=== PATIENT | female | born 1975 | race Caucasian/White ===

== ENCOUNTER → 2018-01-02 10:58 | Outpatient (CLI) | payer OTHER, SELFPAY ==
--- NOTE | 2018-01-02 11:03 | RAD_ITS ---
STUDY: X-RAY - RIGHT KNEE REASON FOR EXAM: Female, 42 years old. Pain of the right knee. TECHNIQUE: 3 view(s) of the knee. COMPARISON: None. FINDINGS: Normal visualized distal femur. Normal visualized proximal tibia and fibula. Normal proximal tibiofibular articulation. There is no demonstrated fracture. There is mild degenerative arthrosis of the medial femorotibial compartment. There is mild degenerative arthrosis of the lateral femorotibial compartment. Normal patellofemoral articulation. There is no demonstrated joint effusion. The soft tissue structures are unremarkable. RAD/Knee 3 Views IMPRESSION: Mild degenerative changes of the medial and lateral compartment. Otherwise normal knee. Electronically Signed: Marti Villeda MD at 18:14 EST , Service support ,
== END ==
PROVIDERS: Family Provider Family Medicine; PCP Family Medicine; Visit Provider Family Medicine
DX: M17.11 Unilateral primary osteoarthritis, right knee (principal)
CPT/HCPCS: 73562

== ENCOUNTER → 2018-08-23 07:49 | Outpatient (CLI) | payer OTHER, SELFPAY ==
--- NOTE | 2018-08-23 07:51 | BI_ITS ---
MAMMOGRAPHY - BILATERAL SCREENING REASON FOR EXAM: Female, 42 years old. Routine annual screening examination. PERTINENT HISTORY: Non-contributory. History of prior left excisional breast biopsy. Prior bilateral breast reduction surgery. TECHNIQUE: Digital bilateral breast rocio (3D mammographic acquisition) in the CC and MLO projections. 2-D mediolateral oblique (MLO) and craniocaudad (CC) views of both breasts were obtained. CAD: Full Field Digital Mammography with Computer Added Detection was performed. COMPARISON: Comparison is made with prior mammogram dated March 03, 2010. FINDINGS: Breast Composition: The breasts are heterogeneously dense, which may obscure small masses. There are no dominant masses or suspicious calcifications. Stable bilateral axillary lymph nodes. No other significant abnormalities are identified. There has been no significant change since the prior study. BI/SCREENING MAMM (CAD), BILAT IMPRESSION: Stable bilateral screening mammogram. Yearly follow-up mammogram recommended. (A) ASSESSMENT CATEGORY: BIRADS Category 2: Benign. A letter regarding these results will be sent to the patient by the facility within 30 days. Approximately 10% of breast cancers are not detected by mammography. A normal mammogram should not delay biopsy of a clinically suspicious abnormality. [id number] Electronically Signed: Sukhwinder Corley MD at 8:55 EDT Tel [phone], Service support ,
== END ==
PROVIDERS: Family Provider Family Medicine; PCP Family Medicine; Referring Provider Nurse Practitioner Family; Visit Provider Nurse Practitioner Family
DX: Z12.31 Encounter for screening mammogram for malignant neoplasm of breast (principal)
CPT/HCPCS: 77063; 77067

== ENCOUNTER 2018-10-25 07:00 | Outpatient (RCR) | payer OTHER, SELFPAY ==
--- NOTE | 2018-05-23 14:21 | MASS.EVAL_ITS ---
Massage Therapy Evaluation: The patient is a 42 y.o. female who was referred to [facility] by Dr. Steiner with a Dx of cervicalgia. She presents today with symptoms of neck and shoulder tension with the left side being worse. The tension causes occasional numbness in the upper extremities, primarily left side. She reports a radiating pain from the upper thoracic spine across the to[ of the left shoulder blade. She reports having 5+ headaches per week. She attributes the headaches to muscle tension and stress. She has a secondary complaint of left hip pain. Medications: Multivitamin Wellbutrin Goals: Improved range of motion Decreased pain and stiffness Decreased numbness in upper extremities Her first treatment consisted of a one hour deep tissue massage to the upper body focusing on the neck and shoulders. She has high muscle tension through the cervical and thoracic are as well as the upper trapezius, levator and rhomboids. She had a large knot in the left rhomboid, along the medial border of the scapula. She responded well to treatment, there was a significant decrease in muscle tension. I feel that Marcia is a good candidate for massage. I plan on seeing her for a total of 10 one hour sessions of massage, focusing on her neck and shoulder areas. Stormy Davidson LMT
== END 2018-10-25 19:00 | disposition home or self-care (01) ==
LOC: MASS 07:00
PROVIDERS: Family Provider Family Medicine; PCP Family Medicine; Visit Provider Family Medicine
DX: M54.2 Cervicalgia (principal)
CPT/HCPCS: 97124

== ENCOUNTER → 2019-06-12 09:51 | Outpatient (CLI) | payer OTHER, SELFPAY ==
[2019-06-12 10:36] LABS: Thyroid Stim Hormone (TSH) 4.04 uIU/mL (0.358-3.74)
== END ==
PROVIDERS: Family Provider Family Medicine; PCP Family Medicine; Referring Provider Family Medicine; Visit Provider Family Medicine
DX: R61 Generalized hyperhidrosis (principal)
CPT/HCPCS: 84443

== ENCOUNTER → 2019-11-04 14:37 | Outpatient (CLI) | payer OTHER, SELFPAY ==
--- NOTE | 2019-11-04 14:40 | RAD_ITS ---
STUDY: X-RAY - CERVICAL SPINE REASON FOR EXAM: Female, 43 years old. NECK PAIN, KNOTS IN SHOULDER TECHNIQUE: 5 view(s) of the cervical spine were obtained. COMPARISON: None FINDINGS: Normal anterior atlantoaxial articulation. Normal odontoid process. There is straightening of the normal cervical lordosis. There is multi-level endplate spondylosis. There is multi-level degenerative disc disease with multilevel disc space narrowing. There is bony/uncovertebral foraminal encroachment involving the right more than left neural foramina, particularly at right C6-C7. The soft tissue structures are unremarkable. RAD/Cerv Spine 4 or 5 Views IMPRESSION: 1. Multilevel degenerative disc disease with right more than left foraminal stenosis, particularly at right C6-C7. Electronically Signed: Shahid Mccarthy MD ([place]) at 8:17 EST , Service support ,
== END ==
PROVIDERS: Family Provider Family Medicine; PCP Family Medicine; Referring Provider Family Medicine; Visit Provider Family Medicine
DX: M47.812 Spondylosis without myelopathy or radiculopathy, cervical region (principal); M50.323 Other cervical disc degeneration at C6-C7 level; M48.02 Spinal stenosis, cervical region
CPT/HCPCS: 72050

== ENCOUNTER → 2019-11-25 16:16 | Outpatient (CLI) | payer OTHER, SELFPAY ==
--- NOTE | 2019-11-25 16:45 | MRI_ITS ---
STUDY: MRI CERVICAL SPINE WITHOUT CONTRAST REASON FOR EXAM: Female, 43 years old. Degenerative disc disease, neck, left shoulder numbness and tingling. Pain in neck and left upper back TECHNIQUE: Standardized fat and water weighted pulse sequences were obtained in the sagittal and axial planes. COMPARISON: X-ray 11/04/2019. FINDINGS: Normal foramen magnum and brainstem-cervical cord junction. Normal craniovertebral junction. Normal anterior atlantoaxial articulation. Normal odontoid process. There is straightening of the normal cervical lordosis. Normal vertebral bodies and posterior osseous elements. C2-3: Normal endplates. Normal disc height, signal and morphology. Normal central canal and intervertebral neural foramina. C3-4: Normal endplates. Normal disc height, signal and morphology. Normal central canal. Moderate to severe left foraminal stenosis due to uncinate hypertrophy. C4-5: Normal endplates. Normal disc height, signal and morphology. Normal central canal and intervertebral neural foramina. C5-6: Disc space narrowing. Mild spondylotic bar with minimal cord flattening and borderline canal stenosis. Severe bilateral foraminal stenosis due to uncinate hypertrophy. C6-7: Disc space narrowing. Mild spondylotic bar with borderline canal stenosis. Severe bilateral foraminal stenosis due to uncinate hypertrophy. C7-T1: Normal endplates. Normal disc height, signal and morphology. Normal central canal and intervertebral neural foramina. Normal cervical cord. Normal visualized soft tissue structures. MRI/Spine Cervical (Routine) IMPRESSION: 1. Borderline canal stenosis at C5-6 and C6-7. 2. Moderate to severe foraminal stenosis at C3-4, C5-6, and C6-7. Electronically Signed: Charline Benavides MD at 17:52 EST Tel , Service support ,
== END ==
PROVIDERS: Family Provider Family Medicine; PCP Family Medicine; Referring Provider Family Medicine; Visit Provider Family Medicine
DX: M50.30 Other cervical disc degeneration, unspecified cervical region (principal)
CPT/HCPCS: 72141

== ENCOUNTER → 2020-07-29 11:07 | Outpatient (CLI) | payer OTHER, SELFPAY ==
[2020-07-29 10:30] VITALS: BMI 33.9
--- NOTE | 2020-07-29 11:08 | RAD_ITS ---
STUDY: X-RAY - LEFT KNEE REASON FOR EXAM: Female, 44 years old. left knee pain TECHNIQUE: 4 view(s) of the knee. COMPARISON: 01/02/2018 FINDINGS: Moderate tricompartmental osteoarthritis. Severe medial compartment joint space loss. No acute fracture or dislocation. No significant soft tissue swelling or joint effusion RAD/Knee 4 or More Views IMPRESSION: Significant degenerative changes Electronically Signed: Gary Fernandez DO at 1:14 EDT Tel , Service support ,
[2020-07-29 15:05] LABS: Pathologist Comment May follow
[2020-07-29 16:16] LABS: Synovial Fld Mononuclear WBC % 58.9 %; Synovial Fld Polynuclear WBC # 0.324 10^3/uL; Synovial Fld Polynuclear WBC % 41.1 %
[2020-07-29 17:57] LABS: RBC /Synovial Fluid 23 /mm3 (0)
[2020-07-29 18:59] LABS: AUTO B FLUID DILUENT BKGD CT WBC <0.1 RBC <0.01 (W<.1,R<.01); CRYSTALS, BODY FLUID See PATH REV; Source / Synovial Fluid NOT GIVEN; Source- Body Fluid SYNOVIAL
[2020-07-29 19:00] LABS: Appearance /Synovial Fluid Sl hazy (CLEAR); Body Fluid QC Type(s) BF1Q,BF2Q; Color / Synovial Fluid Yellow (Pale Yellow); Lymph 3 %; Monocyte /Synovial Fluid 49 %; Neutrophil 48 % (0-25)
[2020-07-30 12:24] LABS: Pathologist Review Reviewed
[2020-08-01 10:19] LABS: GLUCOSE, SYNOVIAL FLUID 102 mg/dL (.); PROTEIN, SYNOVIAL FLUID 7.7 g/dL (.)
== END ==
PROVIDERS: PCP Family Medicine; Referring Provider Orthopaedic Surgery; Visit Provider Orthopaedic Surgery
DX: S83.242A Other tear of medial meniscus, current injury, left knee, initial encounter (principal); M25.562 Pain in left knee; M71.22 Synovial cyst of popliteal space [Baker], left knee; M23.92 Unspecified internal derangement of left knee
CPT/HCPCS: 73564; 82945; 84157; 87070; 87075; 87205; 89050; 89051; 89060

== ENCOUNTER → 2020-07-30 13:29 | Outpatient (CLI) | payer OTHER, SELFPAY ==
[2020-07-29 10:30] VITALS: BMI 33.9
--- NOTE | 2020-07-30 13:30 | MRI_ITS ---
STUDY: MRI LEFT KNEE REASON FOR EXAM: Female, 44 years old. LEFT knee pain (yariel. lateral), swelling, h/o meniscal tear, 40cc fluid drained yesterday TECHNIQUE: Standardized fat and water weighted pulse sequences were obtained in all 3 orthogonal planes. COMPARISON: None. FINDINGS: A small vertical tear is present in the middle one third aspect of the posterior horn of the medial meniscus see image #18/36 series 8. Normal anterior horn and body. There is diffuse, greater than 50% thickness articular cartilage loss of the medial femorotibial compartment. There is mild to moderate osteoarthritic spur formation of the medial knee compartment. Normal medial collateral ligamentous complex (MCL). Normal distal semimembranosus, gracilis and semitendinosus tendons. Normal lateral meniscus. Normal hyaline cartilage of the lateral femorotibial compartment. There is moderate osteoarthritic spur formation of the lateral knee compartment. Normal proximal tibiofibular articulation. Normal lateral collateral (fibular) ligament. Normal popliteus tendon. Normal biceps femoris tendon. Normal anterior cruciate ligament (ACL). Normal posterior cruciate ligament (PCL). Normal congruent patellofemoral articulation. Normal hyaline cartilage of the patellofemoral compartment. Mild cortical osteophyte formation is present in the patellofemoral compartment. Normal medial and lateral patellar retinaculum. Normal quadriceps tendon. Normal patellar tendon. Normal Hoffa''s fat pad. A moderate size joint effusion is present. A 6.55 cm moderate size lobular Chopra''s cyst is also present. Mild edema is present anterior aspect of the knee joint. The otherwise visualized osseous structures are unremarkable. MRI/Lower Ext Joint Only (Routine) IMPRESSION: 1. Small vertical tear in the posterior horn of medial meniscus 2. Moderate size joint effusion and moderate-sized Chopra''s cyst Electronically Signed: Minh Crystal MD at 17:51 EDT , Service support ,
== END ==
PROVIDERS: PCP Family Medicine; Visit Provider Orthopaedic Surgery
DX: M23.92 Unspecified internal derangement of left knee (principal)
CPT/HCPCS: 73721

== ENCOUNTER 2020-08-27 06:02 | Day surgery (SDC) | payer OTHER, SELFPAY ==
[2020-08-03 13:14] VITALS: BMI 33.9
[2020-08-27 06:34] LABS: Internal QC Validated? YES +Cl - CLEAR BKGD; Pregnancy, Urine Negative Negative
[2020-08-27 06:46] VITALS: BP 148/99; PULSE 98; RESP 16; TEMP 36.8; O2SAT 98; BMI 36.8
[2020-08-27] MEDS: Lactated Ringers 1,000 ML 100 ML IV ×2 (06:55→08:58)
[2020-08-27] MEDS: Cefazolin 2 GM in 0.9% Normal Saline 100 ML IV (07:21)
--- NOTE | 2020-08-27 07:25 | DCINST_ITS ---
Discharge Diet: No Restrictions - Remove dressings postop day 4 and apply Band- Aids to incision sites, may shower and get incision wet postop day 4, weight- bear as tolerated left leg, call with increased pain numbness tingling or further issues arise, call if calf pain or calf swelling, Discharge Activity: May Not Drive May shower in (days): 1 Ice area for (Minutes): 20 - Every hour while awake. Weight Bearing Status: Weight bearing as tolerated Keep extremity elevated above heart level: Operative Extremity Call your doctor if your incision/area has: Continuous Slow Oozing, Sudden Increased Bleeding, Increased Pain/ Swelling, Increased Redness, Foul Smelling Discharge Call your doctor if you observe: Fever of 101 or Higher, Coldness, Increased Pain, Numbness or Tingling, Change in Color, Calf discomfort Allergies/Adverse Reactions: Allergies No Known Allergies Allergy (Verified 08/27/20 06:37) Medications to take at Discharge escitalopram oxalate 10 mg tablet 10 mg PO DAILY 05/25/20 multivitamin 1 cap PO DAILY 05/25/20 Ibuprofen 600 mg PO Q6H 08/17/20 Hydrocodone Bitart/Apap 5-325 [[place] 5MG-325MG] 1 - 2 tablet PO Q6H PRN PRN 5 Days #40 tablet 08/27/20 Ondansetron [Zofran] 8 mg PO Q8H PRN PRN #20 tab 08/27/20 The following prescriptions were given: Hydrocodone Bitart/Apap 5-325 [[place] 5MG-325MG] 1 - 2 tablet PO Q6H PRN PRN 5 Days #40 tablet PRN Reason: Pain Transmission Status: Sent to [facility] Ondansetron [Zofran] 8 mg PO Q8H PRN PRN #20 tab PRN Reason: Nausea Transmission Status: Pending to [facility] Primary Care Physician: Jarod Magdaleno MD [Primary Care Provider] - Test Results: Test results from this visit will be discussed in further detail at your follow- up appointment, if applicable. Please Follow Up With: Isabell Pope, - [phone]
--- NOTE | 2020-08-27 07:25 | PCM.OPRPT ---
Report of Operation Date of Procedure: 08/27/20 Pre-Operative Diagnosis: left knee medial men tear, synovitis from inflammatory arthritis, osteoarthritis Post-Operative Diagnosis: same Surgery/Procedure Performed:: salk, pmm, extensive synovectomy, lateral tibial plateau chondroplasty marketing analytics lead: Robin Díaz Type of Anesthesia:: General Anesthesiologist: Ricardo Dukes Drains: tt-36 min Estimated Blood Loss (mL): none Fluids Replaced: 700cc lr Description of Procedure: Patient is a 44-year-old female who sustained her left knee with continued pain instability and locking and recurrent knee effusions. Conservative treatment failed MRI confirms medial meniscus tear as well as arthritis and synovitis. Risk benefits and alternatives were discussed with patient. Risks including but not limited to blood loss, blood clot, infection, neurovascular, failure procedure, loss of life and loss of limb. Patient is aware like to proceed with left knee arthroscopy repair as indicated. Operative note Patient seen and examined preoperative holding her. Left knee was marked. Patient brought to the operating placed supine the operating table. Signed, anesthesia, antibiotics were administered. The left knee was prepped and draped in usual sterile technique with a tourniquet around her upper thigh. All bony promises well-padded SCDs placed on her right on her contralateral limb. We marked our incisions for anterolateral anteromedial placement. We attempted to decompress the Chopra's cyst but unable to did not feel like it was as large it was on the MRI. The left leg was then elevate exsanguinated tourniquet was raised her pressure of 250 torr. Timeout was performed. Then created anterior lateral portal with 11 blade. Begin our diagnostic arthroscopy. Patient has some fibrillated changes the inferior pole of the patella. We then moved to the medial joint line. There is extensive synovitis in the anterior medial anterior lateral recesses. We created an anterior medial portal under direct visualization. Able to then visualize the posterior horn of the medial meniscus which was unstable was a complex tear of the posterior horn. The root itself was stable. We then used combination of a basket and shaver to resect the unstable tear. We then reinserted straight probe and we did have a stable remnant meniscus remaining. She had great 2 x 3 to 1-1/2 x 3 medial femoral condyle on the medial aspect eburnated down to bone as well as kissing lesion on the medial tibial plateau about 1 x 2-1/2. We then performed extensive synovectomy with combination of a shaver and ablator. Her ACL and PCL were present within the notch. We then debrided a large osteophyte that was on the tibial plateau. We moved to the lateral joint line. She has some fibrillated changes of the lateral tibial plateau which was gently debrided with a shaver as well as the inferior pole of the patella that we had found that with those were also gently debrided back with a shaver. There were no loose bodies in the anterior lateral recesses. Then irrigated the knee with copious muscle sterile saline. We used an ablator 1-10 to we ablated the tear was it was leaking at the posterior horn of the medial meniscus and then reprobed the medial meniscus tear and again reassured that there was no unstable root which there was not. The knee was then irrigated copiously sterile saline tourniquet was deflated for total time 36 minutes. Portals were closed interrupted nylon sterile dressings were applied. Patient taught procedure well no complications child recovery room in stable condition. Postoperative Weight-bear as tolerated left leg Call with increased pain numbness tingling or issues right Pharmacy has prescriptions of Discussed with We will get pictures in 2 weeks [employer] disclaimer this note was generated with [employer] dictation software. It may contain incorrect words, spelling, and punctuation that were not noted in checking the note before signing.
--- NOTE | 2020-08-27 08:07 | HP_ITS ---
I have re-examined the patient. There are no clinical changes since date of exam. Intake Intake Visit Reasons: left knee Chief Complaint: L knee pain Accompanied by: Self Is patient in pain?: Yes Pain scale (1-10): 4 Allergies No Known Allergies Allergy (Verified 07/29/20 10:29) [facility] Social History (Updated 08/03/20 @ 14:[address] Isabell Pope DO) Smoking Status: Never smoker HPI left knee: Surgical H&P: Yes Details: Parts of this documentation were recorded by a scribe, this documentation accurately reflects the service provided and the decisions made by me, Dr. Isabell Pope DO 08/03/20 1311. NORMAN PATTON is a 44 year old F here today for follow up of her recent MRI. MRI done at [facility] 07/30/2020. MRI report showed: Small vertical tear in the posterior horn of medial meniscus, Moderate size joint effusion and moderate- sized Chopra's cyst. Left knee pain with extension and patient feels fluid built right back up. Still locking, popping, however patient did feel relief from her injection. Pain is rated: 4/10 from the pain scale. Patient states with exercise, chopra's cyst will get aggravated and inflamed. Has been taking ibuprofen 600mg q8hrs with ice packs. Reports numbness, and tingling. ROS Musc Reports system reviewed and no additional complaints, except as docu, Reports abnormal walking, Reports joint pain, Reports joint swelling, Reports numbness, Reports tingling Skin/Breast Reports system reviewed and no additional complaints, except as docu, Denies dry skin, Denies redness, Denies lesions, Denies new lesions, Denies non-healing lesions, Denies itching, Denies rash, Denies skin ulcer, Denies sores, Denies unusual bruising, Denies wounds Neuro Yes system reviewed and no additional complaints, except as docu, Yes abnormal walking, Yes numbness, Yes restless legs, Yes tingling Assessment & Plan Problems 1. 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 Tear of medial meniscus of left knee, current, unspecified tear type, initial encounter S83.242A 3. Osteoarthritis of left knee M17.12 Plan Personally reviewed MRI results, of the left knee. Educated to patient her knee is showing a meniscus tear and showing irritation with swelling. Will have recurrent swelling with irritation without surgical repair. Patient would like to proceed with surgery. Reviewed the pre-operative plans with the patient. Risks and benefits of the procedure were fully explained, including but not limited to infection, neurovascular injury, continued pain, arthritis, stiffness, need for further surgery, re-injury, DVT, PE, general risks of anesthesia, and loss of limb or life. The patient understands all the risks and does wish to proceed with written consent. Educated after surgery, would have restriction of 6 week no toe touching. We discussed the current risk associated COVID-19. While it is understood that there is a community spread of COVID 19 the risk of nanci COVID-19 while at [facility] is very low, however, the risk cannot be completely mitigated because of the community spread of the disease. We discussed in detail the risk of exposure to and or potential harm posed by the COVID-19 virus with having a surgery/procedure at this time versus the risk of delaying the surgery/procedure. Is not possible to know either the risk of delaying the surgery procedure or chance of getting an infection with perfect accuracy, but a joint decision was made to proceed at this time with a schedule surgery/procedure as indicated on the consent form. Patient was notified that we will need to comply with any screening or testing [facility] wishes to perform or that surgery may be delayed for any positive results. All questions answered. Patient in agreement of plan. Coding Level of Care Code Off vis,est,level 4 Diagnoses Synovial cyst of left knee M71.22 ??Laterality: left Tear of medial meniscus of left knee, current, unspecified tear type, initial encounter S83.242A ??Encounter type: initial encounter ??Meniscus of knee: medial ??Meniscus tear of knee type: unspecified type ??Tear current or old: current Osteoarthritis of left knee M17.12
[2020-08-27] MEDS: Epinephrine (1 mg/ml) 1 MG/ML VIAL (08:20)
[2020-08-27] MEDS: Bupiv/Epi 0.25% 30 ML Vial (08:24)
[2020-08-27] MEDS: Mupirocin Ointment 22gm Tube 1 APPLIC (08:28)
[2020-08-27 08:31] VITALS: BP 138/92; BP 148/99; PULSE 118; RESP 16; TEMP 36.4; O2SAT 100
[2020-08-27 08:45] VITALS: BP 121/92; BP 148/99; PULSE 108; RESP 18; O2SAT 100
[2020-08-27 09:00] VITALS: BP 128/84; BP 148/99; PULSE 100; RESP 16; O2SAT 94
[2020-08-27 09:04] VITALS: BP 146/100; BP 148/99; PULSE 109; RESP 16; TEMP 36.6; O2SAT 93
[2020-08-27 10:00] VITALS: BP 147/79; BP 148/99; PULSE 104; RESP 16; TEMP 36.1; O2SAT 95
[2020-08-27] MEDS: HYDROcodone Bitartrate/Apap 5/325 Tablet PO (10:08)
== END 2020-08-27 10:50 | disposition home or self-care (01) ==
LOC: SDC 06:03 → AC 06:04
PROVIDERS: Anesthesiology; PCP Family Medicine; Referring Provider Orthopaedic Surgery; Visit Provider Orthopaedic Surgery
PROC: (CPT 29870; principal; 2020-08-27 07:10)
DX: S83.232A Complex tear of medial meniscus, current injury, left knee, initial encounter (principal); X58.XXXA Exposure to other specified factors, initial encounter; Y93.9 Activity, unspecified; Y92.9 Unspecified place or not applicable; Y99.9 Unspecified external cause status; M71.22 Synovial cyst of popliteal space [Baker], left knee; M17.12 Unilateral primary osteoarthritis, left knee; Z20.828 Contact with and (suspected) exposure to other viral communicable diseases
CPT/HCPCS: 01400; 29881; 81025; 87635; C9803; J7120; J2405; U0003

== ENCOUNTER 2020-10-11 17:00 | Outpatient (RCR) | payer OTHER, SELFPAY ==
[2020-09-09 13:41] VITALS: BMI 33.9
--- NOTE | 2020-09-20 09:52 | HP.PTEVAL_ITS ---
Patient's Visit Information NORMAN PATTON is a 44 year old F referred to Physical Therapy by Dr. Isabell Pope, with a diagnosis of Left Medial Menisectomy and Ext Synovectomy. Date of Evaluation: 09/20/20 Physical Therapist: Dee Dee Sparks DPT - Visit Plan Frequency: 2-3x /Week Duration: 4 Weeks Plan: Focus on LE and core strength/stabilization with functional mobility. HEP Given IE: SLR with quad set, clams no band, prone hip extension, Hamstring Stretch supine with strap - Subjective Patient reports that 5 years ago slipped down the stairs and felt something- PT and injections- felt okay- catching continued 1-2 a month. Nov she could not bend her knee back anymore then ended up with a cummins cyst- put it off then this summer it got worse. So finally the knee told it was time- locking, catching and needed fixed. Surgery was August [address] Pope- s/p left medial menisectomy and extensive synovectomy. She is being fit for a brace - exercise and working. Current pain is not acute unless she has been up on it for to long. Medial joint pain. Eases: ice, Ibuprofen around the clock. No radiating pain Worst: 6/10 Agg: bending more than 70 degrees. Sleep: wakes her up but she can roll back over- in bed. Describes the pain sharp pain at night when bend to far and dull and achy if she is up to much on it. 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, [employer]) and walks her dog. Goals are to get back to doing all of her normal stuff. Fully I with all ADL's prior to surgery and is back to normal ADL's. PMHx/Meds: no changes since surgery. 2 week visit- sutures out- no x-rays since surgery. RTW Date: October 10. - Objective Posture: FH, RS, can correct with verbal and tactile cues but does not maintain. Gait: slightly antalgic with decreased stance on the left LE. Stairs: asc/desc 8 recip with no HR. Ascend does push off greater on the right than left- descending does not control descent and reports pain. HR/TR: able with discomfort in the medial knee with TR- weight distribution is equal. SLS: 12 seconds then loss of balance and increased muscle activation. Palpation: tender along medial joint line. Sensation: WNL. ROM: 0-120 degrees with no pain at end range. Strength: Core: fair, Hip: flexion: 4/5, abd: 4+/5 Glut Med: 4/5, Extension: 4/5, Add: 4+/5, Knee: 4+/5, Ankle: 5/5. Flex: HS: mild restriction, Quad: mild restriction - Goals Goal 1:: Patient will be I with HEP and progression Goal Time Frame: 4-6 Weeks Goal 2:: Patient will SLS for 30 sec without LOB Goal Time Frame: 4-6 Weeks Goal 3:: Patient will ambulate >300 feet with a normalized gait pattern Goal Time Frame: 4-6 Weeks Goal 4:: Patient will asc/desc 8 stairs with no HR or pain with descent Goal Time Frame: 4-6 Weeks - Rehabilitation Potential Physical Therapy Diagnosis: Patient presents with hypmobility- she has decreased strength, proprioception, flex and muscular endurance leading to abnormal gait and increased pain with ADL's. Rehabilitation Potential: Good - Anticipated Interventions Patient/Client Instruction: Educate patient on: Benefits of Fitness Program Therapeutic Exercise to Include: Strength training, Endurance training, Balance training, Agility training, Body mechanics, Postural training, Flexibilty training, Gait and locomotor training, Neuromotor development, Passive ROM, Active ROM, Dynamic Lumbar Stabilization, Scapular Strength/Stabilization For the Purpose of:: To improve muscle performance and motor function TENS: Yes Cryotherapy (ice pack, ice massage): Yes Thermo therapy (hot pack): Yes Ultrasound (thermal/non thermal): Yes Thank you for the opportunity to evaluate your patient. For Medicare and Medicare HMO plans, please review the plan of care and approve it. It will need to be FAXED BACK to us at [phone] for Medicare purposes. For Medicare only, by signing this I certify the plan of care. Please let me know if there are questions or concerns regarding this plan of care. Physician Signature: Date:
--- NOTE | 2020-10-11 17:23 | HP.PTDCSUM ---
It has been my pleasure to treat NORMAN PATTON referred by Dr. Isabell Pope DO, with the diagnosis of Left Medial Menisectomy and Ext Synovectomy for a total of 7 visit(s). Discharge Date: Please see the following information for a summary of their discharge status. Subjective: Today was first day back- 11 hour shift- up/down and around. More sitting and got a decent amount of walking- sore but not painful. Ice at end of session- no lingering soreness. Feels that she is 85%- feels that she needs more strength. She will get fitted for a brace. She feels that she can do things on her own. Would like to look into personal training at [employer]. She is back to Yoga- did her first full class on Sunday night restorative. left knee Pain Intensity (Out of 10): 2 % Improvement: 85 Objective/Function: Posture: good throughout Gait: no deviation noted Stairs: asc/desc 8 recip with no HR. good control with asc and desc HR/TR: able SLS: 30 seconds no LOB Palpation: tender along medial joint line. Sensation: WNL. ROM: 0-120 degrees with no pain at end range. Strength: Core: fair, Hip: flexion: 4+/5, abd: 5/5 Glut Med: 4+/5, Extension: 4+/5, Add: 5/5, Knee: 5/5, Ankle: 5/5. Flex: HS: mild restriction, Quad: mild restriction Goal 1:: Patient will be I with HEP and progression Goal Progress: Goal Met Goal 2:: Patient will SLS for 30 sec without LOB Goal Progress: Goal Met Goal 3:: Patient will ambulate >300 feet with a normalized gait pattern Goal Progress: Goal Met Goal 4:: Patient will asc/desc 8 stairs with no HR or pain with descent Goal Progress: Goal Met Plan: Dischrage to home exercise program through [facility]- encouraged to call if questions or concerns. If there are questions or concerns regarding this patient's physical therapy, please feel free to call me at [phone]. Thank you for the referral of this patient. Sincerely, Dee Dee Sparks DPT
== END 2020-10-11 19:00 | disposition home or self-care (01) ==
LOC: PT 17:00
PROVIDERS: PCP Family Medicine; Referring Provider Orthopaedic Surgery; Visit Provider Orthopaedic Surgery
DX: Z98.890 Other specified postprocedural states (principal)
CPT/HCPCS: 97110; 97161; 97164

== ENCOUNTER → 2021-04-15 09:13 | Outpatient (CLI) | payer OTHER, SELFPAY | PROVIDERS: PCP Family Medicine; Referring Provider Family Medicine; Visit Provider Family Medicine | DX: R19.7 Diarrhea, unspecified (principal) | CPT/HCPCS: 87493; 87506 ==

== ENCOUNTER 2021-05-23 06:24 | Day surgery (SDC) | payer OTHER, SELFPAY ==
[2021-05-06 14:48] VITALS: BMI 36.8
[2021-05-23] VITALS (7 sets, daily range): BP systolic 113–127; BP diastolic 68–85; PULSE 66–88; RESP 16; TEMP 36.2–36.6; O2SAT 96–100; BMI 34.8
--- NOTE | 2021-05-23 | GASB_PTH ---
PATIENT: NORMAN PATTON LOC: EN U#:[id number] AGE/SX: 45/F ROOM: RE05/23/[address]: Dr. Jason Pierre MD : 1975 BED: DIS: 05/23/2021 SPEC #: [id number] RECD: 05/23/21 08:03 STATUS: KASSIDY PHAMDonis #: [id number] ANIKET: 05/23/21 00:[address]: Jason Pierre DEPT: SURGICAL PATHOLOGY RECD BY: Saw Yañez ENTERED: 05/23/21 08:44 SP TYPE: Gastric Bx OTHR DR: Dr. Jarod Magdaleno MD Tissues: A - Gastric mucous membrane B - Ileum, NOS C - COLON BIOPSY Procedures: Surgery Specimen Level IV HEADER OPERATION: Colonoscopy, EGD ([facility] [place]) PRE-OP DIAGNOSIS: Blood in stool, diarrhea, abdominal pain, weight loss TISSUE SUBMITTED: A - Antrum biopsy for H. pylori and path, B - Terminal ileum biopsy, C - Random colon biopsies MICROSCOPIC DIAGNOSIS A. Antrum biopsy: Mild gastritis. See microscopic description and comment. B. Terminal ileum, biopsy: Fragments of small intestinal mucosa, no pathologic diagnosis. C. Colon, random biopsy: Fragments of colonic mucosa, no pathologic diagnosis. SJ:rg 05/24/2021 COMMENT A. The results of immunohistochemistry for Helicobacter pylori will be reported separately ([id number]). MICROSCOPIC DESCRIPTION Slides are reviewed. A. The specimen shows fragments of gastric mucosa with chronic inflammatory cell infiltrates in the lamina propria consisting of lymphocytes and plasma cells, consistent with mild chronic gastritis. GROSS DESCRIPTION A - Received in fixative is one container labeled with the patient's name and designated antrum biopsy. The specimen consists of multiple irregular fragments of light moe soft tissue that in aggregate measure 0.5 x 0.2 x 0.1 cm. The specimen is totally submitted in one cassette. B - Received in fixative is one container labeled with the patient's name and designated terminal ileum biopsy. The specimen consists of two irregular fragments of light moe soft tissue that in aggregate measure 0.5 x 0.2 x 0.1 cm. The specimen is totally submitted in one cassette. C - Received in fixative is one container labeled with the patient's name and designated random colon biopsy. The specimen consists of multiple irregular fragments of light moe soft tissue that in aggregate measure 2 x 0.5 x 0.1 cm. The specimen is totally submitted in one cassette. / SJ:rg 05/23/21 TC:3 CPT: 36190 x3
[2021-05-23 06:46] LABS: Internal QC Validated? YES +Cl - CLEAR BKGD; Pregnancy, Urine Negative Negative
[2021-05-23] MEDS: Lactated Ringers 1,000 ML 100 ML IV (07:05)
--- NOTE | 2021-05-23 07:09 | PCM.HP.BLA ---
History and Physical Date of Admission: 05/23/21 Intake Vital Signs 05/06/21 14:46 05/06/21 14:48 Height 5 ft 3 in Weight: 198 lb BMI 35.0 36.8 BP 134/89 H Blood Pressure Location Rt brachial Position Sitting Respiration 18 Pulse 86 Pulse Source Monitor Temp 97.5 F L Temp Source Temporal Pulse Oximetry (%) 97 Oxygen Delivery Method room air Intake Visit Reasons: CSCOPE, WEIGHT LOSS Chief Complaint: abdominal pain/nausea/diarrhea [employer] Required: No Is patient in pain?: Yes Allergies No Known Allergies Allergy (Verified 05/06/21 14:47) Medications escitalopram oxalate 10 mg tablet 10 mg PO DAILY 05/25/20 [History Confirmed 05/06/21] multivitamin 1 cap PO DAILY 05/25/20 [History Confirmed 05/06/21] ibuprofen 600 mg PO Q6H 08/17/20 [History Confirmed 05/06/21] ondansetron HCl 8 mg PO Q8H PRN PRN #20 tab 08/27/20 [Rx Confirmed 05/06/21] bupropion HCl 150 mg 24 hr tablet, extended release 150 mg PO QAM 05/06/21 [History Confirmed 05/06/21] omeprazole 40 mg capsule,delayed release 40 mg PO DAILY #60 cap 05/06/21 [Rx Confirmed 05/06/21] PFSH Medical History (Updated 05/06/21 @ 14:[address] Jason Pierre MD) Abdominal pain Arthritis Blood in stool Depression Diarrhea Fatigue Hay fever History of rheumatoid arthritis Knee pain Nausea Seasonal allergies unexplained bruises Weight loss Surgical History (Updated 08/27/20 @ 07:[address] Isabell Pope DO) History of cholecystectomy Family History (Updated 05/06/21 @ 14:45 by Jana Murphy) Mother Arthritis Breast cancer Hypertension Hypercholesterolemia Skin cancer Father CVA (cerebral vascular accident) Other Heart disease Social History (Updated 05/06/21 @ 14:45 by Jana Murphy) Smoking Status: Never smoker alcohol intake: current HPI HPI HPI: NORMAN PATTON, is a 45 F who presents to the office today for several issues. The patient reports that she has been having diarrhea for the past 3 to 4 weeks. She has had enteric panel which is negative. She also reports she is having left lower quadrant pain and left upper quadrant pain. She reports the left upper quadrant pain happens immediately after eating. She says that in her diarrhea she occasionally has a lot of mucus or occasionally has bright red blood. She is also having weight loss unintentionally. ROS General General: Yes weight change, appetite and fatigue; No colon cancer, breast cancer or weakness HEENT HEENT: No difficulty swallowing, eye injury, eye surgery, swollen glands or hoarseness Endo Endocrine: No thyroid disease, diabetes mellitus, thyroid cancer, Hair loss, heat intolerance or cold intolerance Skin Skin: No rash or changing moles Breast Breast: No left breast lump, right breast lump, nipple discharge, breast pain, abnormal mammogram, abnormal US or breast enlargement Musc Musculoskeletal: Yes arthritis and rheumatoid arthritis; No back problems, gout or joint pain Cardio Cardiovascular: No murmur, pacemaker, heart disease, atrial fibrillation, high blood pressure, heart attack, heart stent, palpitations, shortness of breat with exertion or chest pain Psych Psychiatric: Yes depression; No anxiety or hearing voices Resp Respiratory: No shortness of breath, No sleep apnea, No cough, No COPD, No asthma, No emphysema and No wheezing Gastro Gastrointestinal: Yes abdominal pain, Yes nausea or vomiting, Yes diarrhea, No constipation, Yes blood in stool, No acid reflux, No hemorrhoids, No ulcers, Yes gallbladder problem and Yes black,tarry stools Javi Hematologic: No blood thinners, No blood disorders, No bleeding, No anemia and No blood clots Neuro Neurologic: No system reviewed and no additional complaints, except as documented, No as per HPI, No abnormal gait, No abnormal hearing, No abnormal movements, No abnormal speech, No behavioral changes, No burning sensations, No confusion, No convulsions, No disequilibrium, No dizziness, No localized weakness, No frequent falls, No headache(s), No lack of coordination, No loss of vision, No memory loss, No numbness, No other visual disturbances, No radicular pain, No restless legs, No sensory deficit, No syncope, No tingling, No tremor(s), No weakness and No other Exam Const General: cooperative Orientation: alert and oriented x3 HENMT Head: normal to inspection Neck Neck: normal visual inspection and full ROM Chest Chest palpation & inspection: normal inspection of the chest Resp Effort & Inspection: normal respiratory effort Auscultation: clear to auscultation bilaterally Cardio Rate: regular rate Rhythm: regular rhythm GI Inspection: non-distended Palpation: soft and nontender Skin General: no rashes or lesions noted Neuro General: patient alert and patient oriented x3 Extrem General: full ROM Psych Appearance: grossly normal Mental Status: mental status grossly normal Assessment and Plan Assessment and Plan (1) Blood in stool: Status: Acute (2) Diarrhea: Status: Acute Qualifiers: Diarrhea type: unspecified type Qualified Code(s): R19.7 - Diarrhea, unspecified (3) Abdominal pain: Status: Acute Qualifiers: Abdominal location: left upper quadrant Qualified Code(s): R10.12 - Left upper quadrant pain (4) Weight loss: Status: Acute Orders: Orders: Colonoscopy Today K92.1, R19.7 EGD Today K92.1, R19.7 Abdomen/Pelvis WITH Contrast Today K92.1, R19.7 Plan - Dr. Jason Pierre MD: The patient is having left-sided abdominal pain which occurs after eating and with diarrhea. She is also having weight loss and blood in her stool. She has had an enteric panel which is negative. I recommend starting a PPI as the patient is having pain immediately after meals in the left upper quadrant which may represent peptic ulcer disease and may be contributing to the diarrhea. I would also like to obtain a CT scan to see if she has any signs of colitis. Patient is also having blood in her stool and weight loss so I would recommend EGD and colonoscopy. I will perform random biopsies during colonoscopy. Patient reports she started steroids that she had leftover at home and this resolved her issues. I explained endoscopy in detail to the patient. I explained the risks including but not limited to stroke or heart attack with anesthesia, perforation of the GI tract, bleeding, infection. I explained that any of these could necessitate further emergency surgery. The patient understands and all questions were answered sufficiently. The patient wishes to proceed with procedure. Jason Pierre MD Pager: [facility] [address] [place] [address], [address] [place] [address] Office: I have re-examined the patient. There are no clinical changes since date of exam.
--- NOTE | 2021-05-23 07:30 | IMM_PTH ---
PATIENT: NORMAN PATTON LOC: EN U#:[id number] AGE/SX: 45/F ROOM: RE05/23/[address]: Dr. Jason Pierre MD : 1975 BED: DIS: 05/23/2021 SPEC #: [id number] RECD: 05/23/21 08:55 STATUS: KASSIDY REDonis #: [id number] ANIKET: 05/23/21 07:[address]: Jason Pierre DEPT: IMMUNOHISTOCHEMISTRY RECD BY: Jeannette Hartmann ENTERED: 05/23/21 08:56 SP TYPE: IMMUNO OTHR DR: Dr. Jarod Magdaleno MD Tissues: A - Stomach, NOS Procedures: H Pylori (initial) PHYSICIAN & INSTITUTION [place] [id number] SPECIMEN INFORMATION: Tissue Source: A ? Antrum biopsy Clinical Info: Blood in stool, diarrhea, abdominal pain, weight loss Specimen Number: [id number] CPT code: 48877 METHODOLOGY: Deparaffinized sections of prefer/formalin-fixed tissue or PAP/DQ stained slides are incubated with monoclonal/polyclonal antibodies/oligonucleotide probes. Localization is made via biotin free immunoperoxidase method. Appropriate controls are performed and reacted as expected. Results on target cell population are indicated in the following table: RESULTS: ANTIBODY / CLONE RESULT Block A H Pylori (polyclonal) negative These tests were developed and their performance characteristics determined by [facility]. They may not have been cleared or approved by the U.S. Food and Drug Administration. The FDA has determined that such clearance or approval is not necessary. INTERPRETATION: A. Antrum biopsy: Negative for Helicobacter pylori organisms. SJ:daniel 05/24/2021
--- NOTE | 2021-05-23 07:51 | OP.EGD_ITS ---
Patient Name: Marcia Steiner Procedure Date: 05/23/2021 7:11 AM Date of : 1975 Age: 45 Procedure: Upper GI endoscopy Indications: Epigastric abdominal pain Providers: Jason Pierre MD Medicines: Monitored Anesthesia Care Patient Profile: This is a 45 year old female. Refer to note in patient chart for documentation of history and physical. Complications: No immediate complications. Procedure: Pre-Anesthesia Assessment: - Prior to the procedure, a History and Physical was performed, and patient medications and allergies were reviewed. The patient's tolerance of previous anesthesia was also reviewed. The risks and benefits of the procedure and the sedation options and risks were discussed with the patient. All questions were answered, and informed consent was obtained. Prior Anticoagulants: The patient has taken no previous anticoagulant or antiplatelet agents. After reviewing the risks and benefits, the patient was deemed in satisfactory condition to undergo the procedure. After obtaining informed consent, the endoscope was passed under direct vision. Throughout the procedure, the patient's blood pressure, pulse, and oxygen saturations were monitored continuously. The gastroscope was introduced through the mouth, and advanced to the third part of duodenum. The upper GI endoscopy was accomplished without difficulty. The patient tolerated the procedure well. Scope In: 7:30:29 AM Scope Out: 7:33:23 AM Total Procedure Duration Time 0 hours 2 minutes 54 seconds Findings: The esophagus was normal. The examined duodenum was normal. There was evidence of bile reflux in the stomach. Biopsies were taken with a cold forceps in the gastric antrum for Helicobacter pylori testing. Impression: - Normal esophagus. - Normal examined duodenum. - Biopsies were taken with a cold forceps for Helicobacter pylori testing. Recommendation: - Discharge patient to home. - Resume previous diet. - Continue present medications. - Await pathology results. Procedure Code(s): --- Professional --- 98608, Esophagogastroduodenoscopy, flexible, transoral; with biopsy, single or multiple Diagnosis Code(s): --- Professional --- R10.13, Epigastric pain CPT copyright 2017 [employer]. All rights reserved. The codes documented in this report are preliminary and upon buttonhole marker review may be revised to meet current compliance requirements. Jason Pierre MD 05/23/2021 7:50:01 AM This report has been signed electronically. Number of Addenda: 0 Note Initiated On: 05/23/2021 7:11 AM
--- NOTE | 2021-05-23 07:51 | OP.CCLET_ITS ---
05/23/2021 Jarod Magdaleno MD [address] [id number] Re : Upper GI endoscopy procedure for Marcia Steiner Dear Dr. Magdaleno This procedure was performed on Sunday, May 23, 2021. My impressions and recommendations are as follows: Impressions : - Normal esophagus. - Normal examined duodenum. - Biopsies were taken with a cold forceps for Helicobacter pylori testing. Recommendations : - Discharge patient to home. - Resume previous diet. - Continue present medications. - Await pathology results. My findings are described in the full procedure note, which is enclosed. If I can be of further assistance, please feel free to contact me at Doctor phone number(s): , Work: . Sincerely, Jason Pierre MD 05/23/2021 7:50:01 AM This report has been signed electronically.
--- NOTE | 2021-05-23 07:55 | OP.COLON_ITS ---
Patient Name: Marcia Steiner Procedure Date: 05/23/2021 7:34 AM Date of : 1975 Age: 45 Procedure: Colonoscopy Indications: Abdominal pain in the left upper quadrant, Chronic diarrhea, Rectal bleeding Providers: Jason Pierre MD Medicines: Monitored Anesthesia Care Patient Profile: This is a 45 year old female. Refer to note in patient chart for documentation of history and physical. Last Colonoscopy: none. The patient's first colonoscopy is today. Complications: No immediate complications. Estimated blood loss: Minimal. Procedure: Pre-Anesthesia Assessment: - Prior to the procedure, a History and Physical was performed, and patient medications and allergies were reviewed. The patient's tolerance of previous anesthesia was also reviewed. The risks and benefits of the procedure and the sedation options and risks were discussed with the patient. All questions were answered, and informed consent was obtained. Prior Anticoagulants: The patient has taken no previous anticoagulant or antiplatelet agents. After reviewing the risks and benefits, the patient was deemed in satisfactory condition to undergo the procedure. After I obtained informed consent, the scope was passed under direct vision. Throughout the procedure, the patient's blood pressure, pulse, and oxygen saturations were monitored continuously. The colonoscope was introduced through the anus and advanced to the cecum, identified by appendiceal orifice and ileocecal valve. The colonoscopy was performed without difficulty. The patient tolerated the procedure well. The quality of the bowel preparation was good. Scope In: 7:36:13 AM Scope Withdrawal Time 0 hours 6 minutes 56 seconds Scope Out: 7:46:19 AM Total Procedure Duration Time 0 hours 10 minutes 6 seconds Findings: The entire examined colon appeared normal on direct and retroflexion views. Biopsies for histology were taken with a cold forceps from the entire colon for evaluation of microscopic colitis. Biopsies were taken with a cold forceps in the terminal ileum for histology. Impression: - The entire examined colon is normal on direct and retroflexion views. - Biopsies were taken with a cold forceps from the entire colon for evaluation of microscopic colitis. - Biopsies were taken with a cold forceps for histology in the terminal ileum. Recommendation: - Discharge patient to home. - Resume previous diet. - Continue present medications. - Await pathology results. - Repeat colonoscopy in 10 years for screening purposes. Procedure Code(s): --- Professional --- 47066, Colonoscopy, flexible; with biopsy, single or multiple Diagnosis Code(s): --- Professional --- R10.12, Left upper quadrant pain K52.9, Noninfective gastroenteritis and colitis, unspecified K62.5, Hemorrhage of anus and rectum CPT copyright 2017 [employer]. All rights reserved. The codes documented in this report are preliminary and upon healthcare project manager review may be revised to meet current compliance requirements. Jason Pierre MD 05/23/2021 7:54:31 AM This report has been signed electronically. Number of Addenda: 0 Note Initiated On: 05/23/2021 7:34 AM
--- NOTE | 2021-05-23 07:56 | OP.CCLET_ITS ---
05/23/2021 Jarod Magdaleno MD [address] [phone] Re : Colonoscopy procedure for Marcia Steiner Dear Dr. Magdaleno This procedure was performed on Sunday, May 23, 2021. My impressions and recommendations are as follows: Impressions : - The entire examined colon is normal on direct and retroflexion views. - Biopsies were taken with a cold forceps from the entire colon for evaluation of microscopic colitis. - Biopsies were taken with a cold forceps for histology in the terminal ileum. Recommendations : - Discharge patient to home. - Resume previous diet. - Continue present medications. - Await pathology results. - Repeat colonoscopy in 10 years for screening purposes. My findings are described in the full procedure note, which is enclosed. If I can be of further assistance, please feel free to contact me at Doctor phone number(s): , Work: . Sincerely, Jason Pierre MD 05/23/2021 7:54:31 AM This report has been signed electronically.
== END 2021-05-23 08:43 | disposition home or self-care (01) ==
LOC: EN 06:24 → AC 06:25
PROVIDERS: Anesthesiology; PCP Family Medicine; Referring Provider Family Medicine; Visit Provider Surgery
PROC: 0DJD8ZZ Inspection of Lower Intestinal Tract, Via Natural or Artificial Opening Endoscopic (ICD-10-PCS; CPT 45378; principal; 2021-05-23 07:25)
DX: K29.70 Gastritis, unspecified, without bleeding (principal); R10.13 Epigastric pain; K52.9 Noninfective gastroenteritis and colitis, unspecified; K62.5 Hemorrhage of anus and rectum; R10.12 Left upper quadrant pain; F32.9 Major depressive disorder, single episode, unspecified; F41.9 Anxiety disorder, unspecified; M19.90 Unspecified osteoarthritis, unspecified site; Z79.899 Other long term (current) drug therapy
CPT/HCPCS: 43239; 45380; 81025; 88305; 88342; J7120; J2405

== ENCOUNTER 2022-01-06 17:30 | Outpatient (CLI) | payer OTHER, SELFPAY | END 2022-01-06 23:59 | disposition home or self-care (01) | PROVIDERS: PCP Family Medicine; Visit Provider Family Medicine | DX: J40 Bronchitis, not specified as acute or chronic (principal) | CPT/HCPCS: 87635; U0003; U0005 ==

== ENCOUNTER → 2022-04-12 | Outpatient (CLI) | payer OTHER, SELFPAY ==
[2022-04-15 20:49] LABS: HPV APTIMA, High Risk Negative (Negative)
== END | disposition home or self-care (01) ==
LOC: LABSPEC 04-13 08:45
PROVIDERS: PCP Family Medicine; Visit Provider Nurse Practitioner Women's Health
DX: Z12.4 Encounter for screening for malignant neoplasm of cervix (principal)
CPT/HCPCS: 87624; 88175; G0145

== ENCOUNTER → 2022-04-19 | Outpatient (CLI) | payer OTHER, SELFPAY ==
[2022-04-19 12:19] LABS: Estradiol 89.3 pg/mL; Follicle Stimulating Hormone 0.8 mIU/mL; Thyroid Stim Hormone (TSH) 1.88 uIU/mL (0.358-3.74)
== END | disposition home or self-care (01) ==
LOC: LAB 11:13
PROVIDERS: PCP Family Medicine; Visit Provider Nurse Practitioner Women's Health
DX: N95.1 Menopausal and female climacteric states (principal)
CPT/HCPCS: 36415; 82670; 83001; 84443

== ENCOUNTER 2022-05-08 07:15 | Emergency (ER) | payer OTHER, SELFPAY ==
[2022-05-08 07:16] VITALS: BP 136/98; PULSE 87; RESP 14; TEMP 36.2; O2SAT 100; BMI 37.2
[2022-05-08 07:29] VITALS: PULSE 80; RESP 14; O2SAT 99
--- NOTE | 2022-05-08 07:40 | EX.ED.DYSGE1 ---
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 No diplopia, no peripheral neurologic symptoms. No headache or loss of consciousness but she does feel little lightheaded now, but nothing like she had earlier. She states she had a similar episode 3 days ago, which eventually went away and then she was fine until this. She has never had this before. She has felt some fullness in her left ear for the past 3 or 4 days, she has noticed a difference when putting her earbuds in her ears when listening to music, and she was having popping in the left ear occasionally as well. No pain or otorrhea. No congestion, fevers or chills, sinus pain/swelling or other URI symptoms. [facility] Medical History Abdominal pain Alcohol use Anxiety Arthritis Blood in stool Depression Diarrhea Easy bruising Fatigue Hay fever Heartburn History of echocardiogram History of rheumatoid arthritis History of stress test History of use of contraceptive intrauterine device (IUD) Knee pain Nausea Non-smoker Seasonal allergies unexplained bruises Wears glasses Wears partial dentures Weight loss Home Medications multivitamin 1 cap PO DAILY 05/25/20 [History Last Taken Unknown] bupropion HCl 150 mg 24 hr tablet, extended release 150 mg PO QAM 05/06/21 [History Last Taken Unknown] omeprazole 40 mg capsule,delayed release 40 mg PO DAILY #60 caps 05/06/21 [Rx Last Taken Unknown] escitalopram oxalate 10 mg tablet (Lexapro) 5 mg PO DAILY 04/12/22 [History Last Taken Unknown] lisinopril 5 mg tablet 5 mg PO DAILY 04/12/22 [History Last Taken Unknown] rosuvastatin 10 mg tablet (Crestor) 10 mg PO DAILY 04/12/22 [History Last Taken Unknown] amoxicillin 875 mg-potassium clavulanate 125 mg tablet 1 tab PO BID #20 tabs 05/08/22 [Rx Last Taken Unknown] meclizine 25 mg tablet 25 mg PO Q8H PRN PRN Dizziness #20 tabs 05/08/22 [Rx Last Taken Unknown] Allergy/AdvReac Type Severity Reaction Status Date / Time No Known Allergies Allergy Verified 05/08/22 07:19 Family History Mother Arthritis Breast cancer Hypertension Hypercholesterolemia Skin cancer Father CVA (cerebral vascular accident) Other Heart disease Surgical History History of arthroscopy of left knee History of cholecystectomy Social History household members: spouse current occupational status: employed current occupation: [employer] Smoking Status: Never smoker alcohol intake: current substance use type: does not use what type of physical activity do you participate in: yoga and aerobics frequency: 3-4 times per week seatbelt use: always do you feel safe at home: Yes additional social history: - Elkin AMITA LEVI ED Constitutional Constitutional ED: Denies chills or fever(s) Eyes Eyes: Denies change in vision or diplopia ENT ENT ED: Reports as per HPI and ear pain left; Denies headache(s), rhinorrhea or sore throat Cardiovascular Cardiovascular: Denies chest pain or palpitations Respiratory/Chest Respiratory/Chest: Denies cough or dyspnea Gastrointestinal Gastrointestinal: Reports nausea and vomiting; Denies abdominal pain or diarrhea Genitourinary Genitourinary ED: Denies dysuria or hematuria Musculoskeletal Musculoskeletal: Denies back pain or neck pain Integumentary Denies abscess or rash Neurologic Neurologic: Reports as per HPI and vertigo; Denies headache(s), paresthesias or weakness Psychiatric Psychiatric: Denies anxiety or suicidal thoughts EXAM Physical Exam Const Vital Signs: 05/08/22 07:16 05/08/22 07:29 05/08/22 07:29 Temperature 97.1 F L Temperature Source Temporal Pulse Rate 87 80 Respiratory Rate 14 14 Respiratory Effort Normal Non-Labored Respiratory Pattern Normal Blood Pressure 136/98 H Blood Pressure Mean 110 Pulse Ox 100 99 Oxygen Delivery Method Room Air Room Air Positive well nourished and well developed General Appearance ED: well developed and NAD HEENT Reports moist mucous membranes HEENT Narrative: Left TM erythematous, light reflex intact. EACs normal bilaterally, right TM normal. No discomfort with manipulation of pinna or tragus bilaterally. normocephalic and atraumatic Eyes PERRL and EOMs intact bilaterally Eyes Narrative: Horizontal nystagmus, non-fatigable to the left, no vertical or rotatory nystagmus. General Eye ED: Negative for scleral icterus Neck full ROM and supple Resp normal respiratory effort and clear to auscultation bilaterally Cardio regular rate, regular rhythm and no murmurs GI non-tender and non-distended Auscultation: normoactive bowel sounds Palpation: soft Back/Spine no CVA tenderness General Back: other FROM Extremity normal to inspection General Extremety ED: Negative for edema, pulses abnormal or tenderness General Extremity: Negative for edema or pulses abnormal Neuro oriented x3, CN's II-XII intact bilaterally and no sensory deficits noted Neuro Narrative: Normal [id number] and jaff-nh-poka bilaterally. Normal Romberg. Excellent strength. Sensorium / Orientation: awake and alert Motor Exam: strength 5/5 throughout Skin no rashes or lesions noted and no wounds MDM MDM MDM Narrative Medical decision making narrative: Appears that she is developing otitis media on the left, with definite asymmetry of the tympanic membranes with the right one appearing nice and normal. All of her symptoms and exam findings are consistent with peripheral vertigo, including her blood pressure in the 130s. She otherwise is well-appearing. We will treat her ear with Augmentin and her vertiginous symptoms with meclizine and Zofran today. Discharge Plan Triage Chief Complaint: Dizziness ED Provider: James Goodwin Dx/Rx/DC Orders Clinical Impression: Acute otitis media, left, Peripheral positional vertigo of left ear Instructions: Vertigo Inner Ear Problems, ED Otitis Media Antibiotic ... Prescriptions: New amoxicillin-pot clavulanate 875-125 mg tablet 1 tab PO BID Qty: 20 0RF meclizine [meclizine] 25 MG tablet 25 mg PO Q8H PRN PRN (Reason: Dizziness) Qty: 20 0RF No Action multivitamin capsule 1 cap PO DAILY escitalopram oxalate [Lexapro] 10 mg tablet 5 mg PO DAILY omeprazole 40 mg capsule,delayed release(DR/EC) 40 mg PO DAILY Qty: 60 0RF bupropion HCl 150 mg tablet extended release 24 hr 150 mg PO QAM lisinopril 5 mg tablet 5 mg PO DAILY rosuvastatin [Crestor] 10 mg tablet 10 mg PO DAILY Primary Care Provider: Jarod Magdaleno Referrals: Jarod Magdaleno MD [Primary Care Provider] - 3-5 Days if not improving Disposition Disposition: Home, Self Care
[2022-05-08] MEDS: Meclizine HCl 25 MG Tablet PO (08:00)
[2022-05-08] MEDS: Ondansetron ODT 4 MG Tablet 8 MG PO (08:00)
== END 2022-05-08 08:04 | disposition home or self-care (01) ==
PROVIDERS: Emergency Provider Emergency Medicine; PCP Family Medicine; Visit Provider Emergency Medicine
DX: H66.92 Otitis media, unspecified, left ear (principal); H81.392 Other peripheral vertigo, left ear; F41.9 Anxiety disorder, unspecified; M19.90 Unspecified osteoarthritis, unspecified site
CPT/HCPCS: 99283

== ENCOUNTER 2022-05-10 14:33 | Observation (INO) | payer OTHER, SELFPAY ==
[2022-05-10] VITALS (7 sets, daily range): BP systolic 141–153; BP diastolic 73–101; PULSE 75–95; RESP 15–18; TEMP 36.8–37.6; O2SAT 98–100; BMI 37.3; BMI 38.6
--- NOTE | 2022-05-10 14:56 | EX.ED.DYSGE1 ---
HPI History of Present Illness Chief Complaint: Cellulitis Informant: patient Onset/Context/Timing Onset: Yesterday Context: Gradual Onset Timing: Continuous Quality: Tightness, warmth Location: Right upper arm Worsened by: Nothing Relieved by: Nothing Narrative Narrative: Patient presents with cellulitis to her right upper arm that began yesterday. Patient stated that it started as a small area of redness on the posterior aspect of her distal upper arm near her elbow. Patient states that today it has spread to her axilla. Patient states she saw Dr. Magdaleno today and he referred her to the emergency department. Patient states that since she left his office and came to the emergency department the redness has spread past her elbow. Patient states she feels warm. Patient denies any fevers however. Patient denies any nausea or vomiting. Patient is currently on amoxicillin for an ear infection. [facility] Medical History Abdominal pain Alcohol use Anxiety Arthritis Blood in stool Depression Diarrhea Easy bruising Fatigue Hay fever Heartburn History of echocardiogram History of rheumatoid arthritis History of stress test History of use of contraceptive intrauterine device (IUD) Knee pain Nausea Non-smoker Seasonal allergies unexplained bruises Wears glasses Wears partial dentures Weight loss Home Medications bupropion HCl 150 mg 24 hr tablet, extended release 150 mg PO QAM 05/06/21 [History Last Taken 05/10/22] omeprazole 40 mg capsule,delayed release 40 mg PO DAILY #60 caps 05/06/21 [Rx Last Taken 05/10/22] lisinopril 5 mg tablet 5 mg PO DAILY 04/12/22 [History Last Taken 05/10/22] rosuvastatin 10 mg tablet (Crestor) 10 mg PO DAILY 04/12/22 [History Last Taken 05/10/22] amoxicillin 875 mg-potassium clavulanate 125 mg tablet 1 tab PO BID #20 tabs 05/08/22 [Rx Last Taken 05/10/22] meclizine 25 mg tablet 25 mg PO Q8H PRN PRN Dizziness #20 tabs 05/08/22 [Rx Last Taken Unknown] multivitamin 1 tab PO DAILY SUPPLEMENT 05/10/22 [History Last Taken 05/10/22] vortioxetine 10 mg tablet (Trintellix) 10 mg PO DAILY 05/10/22 [History Last Taken 05/10/22] Allergy/AdvReac Type Severity Reaction Status Date / Time No Known Allergies Allergy Verified 05/10/22 14:35 Family History Mother Arthritis Breast cancer Hypertension Hypercholesterolemia Skin cancer Father CVA (cerebral vascular accident) Other Heart disease Surgical History History of arthroscopy of left knee History of cholecystectomy Social History household members: spouse current occupational status: employed current occupation: [employer] Smoking Status: Never smoker alcohol intake: current substance use type: does not use what type of physical activity do you participate in: yoga and aerobics frequency: 3-4 times per week seatbelt use: always do you feel safe at home: Yes additional social history: - Elkin AMITA ROS ED Constitutional Constitutional ED: Denies chills or fever(s) Eyes Eyes: Denies blurry vision or change in vision ENT ENT ED: Denies rhinorrhea or sore throat Cardiovascular Cardiovascular: Denies chest pain or palpitations Respiratory/Chest Respiratory/Chest: Denies cough or dyspnea Gastrointestinal Gastrointestinal: Denies nausea or vomiting Genitourinary Genitourinary ED: Denies dysuria or hematuria Musculoskeletal Musculoskeletal: Denies back pain or neck pain Integumentary Reports rash; Denies abscess Neurologic Neurologic: Denies headache(s) or weakness Allergic/Immunologic Allergic/Immunologic ED: Denies mouth swelling or urticaria EXAM Physical Exam Const Vital Signs: 05/10/22 14:34 05/10/22 14:46 Temperature 98.4 F 98.4 F Temperature Source Temporal Temporal Pulse Rate 95 95 Respiratory Rate 16 16 Blood Pressure 144/92 H 144/92 H Blood Pressure Mean 109 Pulse Ox 100 100 Oxygen Delivery Method Room Air Room Air Positive well nourished and well developed General Appearance ED: well developed and NAD HEENT Reports moist mucous membranes Chest Wall inspection of chest normal and palpation of chest normal Resp normal respiratory effort and clear to auscultation bilaterally Cardio regular rate and regular rhythm GI normal to inspection, nondistended, normoactive bowel sounds and non-tender Palpation: soft Extremity Extremity Narrative: There is erythema and warmth over the medial and posterior aspects of the right upper arm. There is tenderness to palpation. There is good range of motion. Strength is 5/5 bilaterally in the upper extremities. There are no sensory deficits noted. Neuro oriented x3, CN's II-XII intact bilaterally and no sensory deficits noted Sensorium / Orientation: alert Psych mental status grossly normal MDM MDM MDM Narrative Medical decision making narrative: Patient was given IV fluids, Unasyn, and vancomycin. CBC was within normal limits. Comprehensive metabolic profile was essentially within normal limits. Lactate was normal. Blood cultures were obtained. Case was discussed with the hospitalist. He will admit the patient to his service. Patient understood and was agreeable with the plan. All questions were answered. Lab Data Attestation: I reviewed the patient's lab results. Labs: Laboratory Results - last 24 hr 05/10/22 05/10/22 05/10/22 15:11 15:11 15:11 WBC 7.7 RBC 4.45 Hgb 13.0 Hct 40.0 MCV 89.9 MCH 29.2 MCHC 32.5 RDW Std Deviation 41.0 RDW Coeff of Ray 12.4 Plt Count 213 MPV 10.8 Immature Gran % (Auto) 0.300 Neut % (Auto) 64.8 Lymph % (Auto) 28.5 Moca % (Auto) 4.2 Eos % (Auto) 1.7 Baso % (Auto) 0.5 Absolute Neuts (auto) 5.0 Absolute Lymphs (auto) 2.20 Nucleated RBC % 0 Sodium 135 L Potassium 3.7 Chloride 103 Carbon Dioxide 26.0 Anion Gap 6 BUN 9 Creatinine 0.79 Estim Creat Clear Calc 73.61 Est GFR (MDRD) Af Amer 100 Est GFR (MDRD) Non-Af 83 BUN/Creatinine Ratio 11.4 Glucose 108 H Lactic Acid 1.2 Calcium 9.2 Total Bilirubin 1.50 H AST 22 ALT 47 Alkaline Phosphatase 93 Total Protein 8.2 Albumin 4.2 Globulin 4.0 Albumin/Globulin Ratio 1.0 Discharge Plan Triage Chief Complaint: Cellulitis ED Provider: Colby Blancas Dx/Rx/DC Orders Clinical Impression: Cellulitis of right upper arm Prescriptions: No Action omeprazole 40 mg capsule,delayed release(DR/EC) 40 mg PO DAILY Qty: 60 0RF bupropion HCl 150 mg tablet extended release 24 hr 150 mg PO QAM lisinopril 5 mg tablet 5 mg PO DAILY rosuvastatin [Crestor] 10 mg tablet 10 mg PO DAILY amoxicillin-pot clavulanate 875-125 mg tablet 1 tab PO BID Qty: 20 0RF meclizine [meclizine] 25 MG tablet 25 mg PO Q8H PRN PRN (Reason: Dizziness) Qty: 20 0RF Trintellix 10 mg Tablet 10 mg PO DAILY multivitamin Tablet 1 tab PO DAILY Primary Care Provider: Jarod Magdaleno Referrals: Jarod Magdaleno MD [Primary Care Provider] - Disposition Disposition: Acute Care Hospital [facility]
[2022-05-10] MEDS: 0.9% Normal Saline 1,000 ML 1000 ML IV (15:11)
[2022-05-10 15:27] LABS: Basophil# 0.04 X10^3/uL; Basophil% 0.5 % (0-1); Eosinophil# 0.13 X10^3/uL; Eosinophils% 1.7 % (0-5); Lymphocyte % 28.5 % (19-41); Mean Corp Hgb Conc 32.5 g/dL (32-36); Mean Corpuscular Hgb 29.2 pg (27.0-32.0); Mean Corpuscular Volume 89.9 fL (81-99); Mean Platelet Vol. 10.8 fl (6.2-12.0); Monocyte# 0.32 X10^3/uL; Monocyte% 4.2 % (0-10); NRBC Flagged by Analyzer 0 % (0-5); Neutrophil % 64.8 % (47-70); Platelet Count 213 K/mm3 (150-450); RBC Distribution Width CV 12.4 % (11.6-14.6); Red Blood Count 4.45 M/mm3 (4.2-5.4); White Blood Count 7.7 K/mm3 (4.4-11.0)
[2022-05-10 15:57] LABS: AST(SGOT) 22 U/L (15-37); Alanine Aminotransfer ALT/SGPT 47 U/L (13-56); Albumin, Serum 4.2 g/dL (3.2-5.0); Alkaline Phosphatase 93 U/L (45-117); Anion Gap 6 (5-15); BUN 9 mg/dL (7-18); BUN/Creat Ratio 11.4 RATIO (10-20); Calcium,Total 9.2 mg/dL (8.5-10.1); Chloride 103 mmol/L (98-107); Creatinine, Serum 0.79 mg/dL (0.55-1.02); EST Glomerular Filtration Rate 83 mL/min (>60); Est Glom Filt Rate - Afr Amer 100 mL/min (>60); Estimated Creatinine Clearance 73.61 ml/min; Glucose 108 mg/dL (74-106); Potassium 3.7 mmol/L (3.5-5.1); Protein, Total 8.2 g/dL (6.4-8.2); Sodium Level 135 mmol/L (136-145)
[2022-05-10 16:00] LABS: Lactic Acid 1.2 mmol/L (0.4-1.9)
--- NOTE | 2022-05-10 16:29 | NURSING ---
DR ILDA GALLARDO
--- NOTE | 2022-05-10 16:43 | NURSING ---
108 KITTOE CELLULITIS RT ARM
--- NOTE | 2022-05-10 16:53 | HP.PCM.HOS_ITS ---
[facility] - General General Date of Admission: 05/10/22 Date of Service: 05/10/22 Chief Complaint: Right arm swelling and erythema [facility] Narrative NORMAN PATTON, is a 46 F with left swelling. Patient has past medical history signal for dyslipidemia, rheumatoid arthritis and hypertension. Her symptoms started a day prior to her admission when she noticed about a 2 cm rounded area of erythema on her right arm. This later progressed to involve the medial aspect of the left. She also did notice significant swelling. She denied any pain. No subjective fever no chills. She however complains of feeling tired for couple of weeks. 2 days prior to admission she had an episode of vertigo with nausea and subsequently passing out. She was seen in the emergency department diagnosed with otitis media subsequently started on Augmentin. Patient was admitted to regular nursing floor to be managed as a case of IV cellulitis [facility] TO [facility] Medical History Abdominal pain Alcohol use Anxiety Arthritis Blood in stool Depression Diarrhea Easy bruising Fatigue Hay fever Heartburn History of echocardiogram History of rheumatoid arthritis History of stress test History of use of contraceptive intrauterine device (IUD) Knee pain Nausea Non-smoker Seasonal allergies unexplained bruises Wears glasses Wears partial dentures Weight loss Home Medications bupropion HCl 150 mg 24 hr tablet, extended release 150 mg PO QAM 05/06/21 [History Last Taken 05/10/22] omeprazole 40 mg capsule,delayed release 40 mg PO DAILY #60 caps 05/06/21 [Rx Last Taken 05/10/22] lisinopril 5 mg tablet 5 mg PO DAILY 04/12/22 [History Last Taken 05/10/22] rosuvastatin 10 mg tablet (Crestor) 10 mg PO DAILY 04/12/22 [History Last Taken 05/10/22] amoxicillin 875 mg-potassium clavulanate 125 mg tablet 1 tab PO BID #20 tabs 05/08/22 [Rx Last Taken 05/10/22] meclizine 25 mg tablet 25 mg PO Q8H PRN PRN Dizziness #20 tabs 05/08/22 [Rx Last Taken Unknown] multivitamin 1 tab PO DAILY SUPPLEMENT 05/10/22 [History Last Taken 05/10/22] vortioxetine 10 mg tablet (Trintellix) 10 mg PO DAILY 05/10/22 [History Last Taken 05/10/22] Allergy/AdvReac Type Severity Reaction Status Date / Time No Known Allergies Allergy Verified 05/10/22 14:35 Family History Mother Arthritis Breast cancer Hypertension Hypercholesterolemia Skin cancer Father CVA (cerebral vascular accident) Other Heart disease Surgical History History of arthroscopy of left knee History of cholecystectomy Social History household members: spouse current occupational status: employed current occupation: [employer] Smoking Status: Never smoker alcohol intake: current substance use type: does not use what type of physical activity do you participate in: yoga and aerobics frequency: 3-4 times per week seatbelt use: always do you feel safe at home: Yes additional social history: - Elkin LEVI Narrative GENERAL: denies fever, chills, HEENT: denies headache, sinus congestion, RESPIRATORY: denies cough, sputum production, CARDIAC: denies chest pain, palpitations, GASTROINTESTINAL: denies abdominal pain, nausea, GENITOURINARY: denies dysuria, urgency, frequency, EXTREMITY: denies swelling MUSCULOSKELETAL: denies current joint pain or tenderness NEUROLOGIC: denies focal numbness, weakness, tingling HEMATOLOGIC: denies easy bruising and/or hemorrhage INTEGUMENT: Rash left arm PSYCHIATRIC: denies suicidal or homicidal ideation Vital Signs Vital Signs Vital Signs: 05/10/22 14:34 05/10/22 14:46 05/10/22 16:36 Temperature 98.4 F 98.4 F 98.5 F Temperature Source Temporal Temporal Oral Pulse Rate 95 95 78 Respiratory Rate 16 16 15 Blood Pressure 144/92 H 144/92 H 143/73 H Blood Pressure Mean 109 96 Pulse Ox 100 100 100 Oxygen Delivery Method Room Air Room Air Room Air 05/10/22 16:35 05/10/22 16:33 Temperature 98.5 F Temperature Source Oral Pulse Rate 78 75 Respiratory Rate 15 15 Blood Pressure 143/73 H Blood Pressure Mean Pulse Ox 100 99 Oxygen Delivery Method Room Air Room Air Weight Weight: 95.708 kg Body Mass Index (BMI) 37.3 Physical Exam Narrative GENERAL: cooperative HEENT: Atraumatic; EYES; Anicteric, Normal Conjunctiva NECK; supple, normal thyroid, RESPIRATORY: Diminished to auscultation CARDIOVASCULAR: Regular S1 S2, GI: soft, normoactive bowel sounds, : No Renal angle tenderness; EXTREMITIES: An area of erythema posterior medial aspect of the right arm MUSCULOSKELETAL: no muscle wasting NEURO: Awake; no lateralizing signs. SKIN: As described above PSYCH; Flat affect Results Lab / Micro Data Result Diagrams: 05/10/22 15:11 05/10/22 15:11 Labs: Laboratory Results - last 24 hr 05/10/22 15:11: WBC 7.7, RBC 4.45, Hgb 13.0, Hct 40.0, MCV 89.9, MCH 29.2, MCHC 32.5, RDW Std Deviation 41.0, RDW Coeff of Ray 12.4, Plt Count 213, MPV 10.8, Immature Gran % (Auto) 0.300, Neut % (Auto) 64.8, Lymph % (Auto) 28.5, [place] % (Auto) 4.2, Eos % (Auto) 1.7, Baso % (Auto) 0.5, Absolute Neuts (auto) 5.0, Absolute Lymphs (auto) 2.20, Nucleated RBC % 0 05/10/22 15:11: Sodium 135 L, Potassium 3.7, Chloride 103, Carbon Dioxide 26.0, Anion Gap 6, BUN 9, Creatinine 0.79, Estim Creat Clear Calc 73.61, Est GFR (MDRD) Af Amer 100, Est GFR (MDRD) Non-Af 83, BUN/Creatinine Ratio 11.4, Glucose 108 H, Calcium 9.2, Total Bilirubin 1.50 H, AST 22, ALT 47, Alkaline Phosphatase 93, Total Protein 8.2, Albumin 4.2, Globulin 4.0, Albumin/Globulin Ratio 1.0 05/10/22 15:11: Lactic Acid 1.2 Assessment & Plan Assessment/Plan (1) Cellulitis of right upper arm: PLAN: Plan Patient is a 46-year-old female presented with left upper extremity swelling and erythema 1. Left arm cellulitis ? Patient has been admitted to regular nursing floor started on Rocephin and vancomycin blood culture sent 2. Recent diagnosis of otitis media ? Patient was treated with Augmentin 3. Rheumatoid arthritis ? Recent diagnosis patient here to be evaluated by rheumatology for initiation of DMARDs 4. Hypertension - Blood pressure controlled, home medications continued with dose adjustment as needed 5. Dyslipidemia -Patient is on statin therapy, continued at home dose 6. GERD ? On PPI 7. Depression ? Patient is on Trintellix 8. DVT prophylaxis ? Low risk encourage early ambulation Charges/Coding Visit Charges Inpatient E&M: 29816 Init Hosp L2
--- NOTE | 2022-05-10 17:30 | PCM.RX.CS ---
Consult Pharmacy has been consulted to manage selected antiobiotic: Vancomycin Type of Consult: New start Suspected Infection: Skin/Soft tissue Labs: Sodium 135 mmol/L (136-145) L 05/10/22 15:11 Potassium 3.7 mmol/L (3.5-5.1) 05/10/22 15:11 Chloride 103 mmol/L (98-107) 05/10/22 15:11 Carbon Dioxide 26.0 mmol/L (21.0-32.0) 05/10/22 15:11 Anion Gap 6 (5-15) 05/10/22 15:11 BUN 9 mg/dL (7-18) 05/10/22 15:11 Creatinine 0.79 mg/dL (0.55-1.02) 05/10/22 15:11 Est GFR (MDRD) Af Amer 100 mL/min (>60) 05/10/22 15:11 Est GFR (MDRD) Non-Af 83 mL/min (>60) 05/10/22 15:11 BUN/Creatinine Ratio 11.4 RATIO (10-20) 05/10/22 15:11 Glucose 108 mg/dL (74-106) H 05/10/22 15:11 Goal Trough: 15-20 mcg/mL Pharmacy Plan for Drug Dosing: NEW START IV VANCOMYCIN Consulting Physician: Dr. Griffith Indication: SSTI Goal Trough: 15-20 SrCr: 0.79 CrCl: 99 mL/min (using AdjBW to calculate) Comments: Had 1500mg IV x1 in ED 05/10/22 @1623 Vancomcyin Dose: 2000mg IV Q12hr to start 05/11/22 @0400 Pending Level: 05/12/22 @0330, prior to 4th total dose per protocol Pharmacy Service will continue to monitor and adjust dosing as required.
[2022-05-10] MEDS: Ceftriaxone 1 GM/50 ML BAG IV (19:42)
[2022-05-11 00:44] VITALS: BP 131/88; PULSE 75; RESP 18; TEMP 36.7; O2SAT 100
[2022-05-11 05:00] VITALS: BP 134/81; PULSE 83; RESP 18; TEMP 36.3; O2SAT 99
[2022-05-11 05:59] LABS: Absolute Lymphocyte Count 2.29 X10^3/uL (0.83-4.51); Absolute Neutrophil Count 3.5 X10^3/uL (2.0-7.7); Basophil# 0.02 X10^3/uL; Basophil% 0.3 % (0-1); Eosinophil# 0.18 X10^3/uL; Eosinophils% 2.8 % (0-5); Hematocrit 37.1 % (37-47); Hemoglobin 11.9 g/dL (12.0-15.0); Lymphocyte # 2.29 X10^3/ul (0.83-4.51); Lymphocyte % 36.1 % (19-41); Mean Corp Hgb Conc 32.1 g/dL (32-36); Mean Corpuscular Hgb 29.2 pg (27.0-32.0); Mean Corpuscular Volume 91.2 fL (81-99); Mean Platelet Vol. 11.3 fl (6.2-12.0); Monocyte# 0.34 X10^3/uL; Monocyte% 5.4 % (0-10); NRBC Flagged by Analyzer 0 % (0-5); Neutrophil # 3.51 X10^3/uL (2.7-7.7); Neutrophil % 55.4 % (47-70); Platelet Count 188 K/mm3 (150-450); RBC Distribution Width CV 12.6 % (11.6-14.6); RBC Distribution Width SD 41.7 fl (35.1-43.9); Red Blood Count 4.07 M/mm3 (4.2-5.4); White Blood Count 6.3 K/mm3 (4.4-11.0)
[2022-05-11 06:31] LABS: Anion Gap 4 (5-15); BUN 5 mg/dL (7-18); BUN/Creat Ratio 6.6 RATIO (10-20); Chloride 109 mmol/L (98-107); Creatinine, Serum 0.76 mg/dL (0.55-1.02); EST Glomerular Filtration Rate 87 mL/min (>60); Est Glom Filt Rate - Afr Amer 105 mL/min (>60); Estimated Creatinine Clearance 76.51 ml/min; Glucose 107 mg/dL (74-106); Magnesium 2.1 mg/dL (1.6-2.6); Potassium 4.2 mmol/L (3.5-5.1); Sodium Level 139 mmol/L (136-145)
--- NOTE | 2022-05-11 07:49 | PN.HOSP_ITS ---
Subjective Subjective Significant improvement in area of cellulitis involving the right upper extremity. Plan is to assess for possible discharge Objective Data Objective Data Vital Signs: Vital Signs Temp Pulse Resp BP Pulse Ox O2 Del Method 97.3 F L 83 18 134/81 H 99 Room Air 05/11/22 05:00 05/11/22 05:00 05/11/22 05:00 05/11/22 05:00 05/11/22 05:00 05/11/22 05:00 Oxygen Delivery Method Room Air Weight: 98.9 kg Body Mass Index (BMI) 38.6 Intake & Output: Intake and Output for Last 24 Hours 05/09/22 05/10/22 05/11/22 23:59 23:59 23:59 Intake Total 1692.00 / 1692.00 Balance 1692.00 / 1692.00 Lab / Micro Data Result Diagrams: 05/11/22 05:25 05/11/22 05:25 Labs: Laboratory Results - last 24 hr 05/10/22 15:11: WBC 7.7, RBC 4.45, Hgb 13.0, Hct 40.0, MCV 89.9, MCH 29.2, MCHC 32.5, RDW Std Deviation 41.0, RDW Coeff of Ray 12.4, Plt Count 213, MPV 10.8, Immature Gran % (Auto) 0.300, Neut % (Auto) 64.8, Lymph % (Auto) 28.5, [place] % (Auto) 4.2, Eos % (Auto) 1.7, Baso % (Auto) 0.5, Absolute Neuts (auto) 5.0, Absolute Lymphs (auto) 2.20, Nucleated RBC % 0 05/10/22 15:11: Sodium 135 L, Potassium 3.7, Chloride 103, Carbon Dioxide 26.0, Anion Gap 6, BUN 9, Creatinine 0.79, Estim Creat Clear Calc 73.61, Est GFR (MDRD) Af Amer 100, Est GFR (MDRD) Non-Af 83, BUN/Creatinine Ratio 11.4, Glucose 108 H, Calcium 9.2, Total Bilirubin 1.50 H, AST 22, ALT 47, Alkaline Phosphatase 93, Total Protein 8.2, Albumin 4.2, Globulin 4.0, Albumin/Globulin Ratio 1.0 05/10/22 15:11: Lactic Acid 1.2 05/11/22 05:25: WBC 6.3, RBC 4.07 L, Hgb 11.9 L, Hct 37.1, MCV 91.2, MCH 29.2, MCHC 32.1, RDW Std Deviation 41.7, RDW Coeff of Ray 12.6, Plt Count 188, MPV 11.3, Immature Gran % (Auto) 0.000, Neut % (Auto) 55.4, Lymph % (Auto) 36.1, [place] % (Auto) 5.4, Eos % (Auto) 2.8, Baso % (Auto) 0.3, Absolute Neuts (auto) 3.5, Absolute Lymphs (auto) 2.29, Nucleated RBC % 0 05/11/22 05:25: Sodium 139, Potassium 4.2, Chloride 109 H, Carbon Dioxide 26.0, Anion Gap 4 L, BUN 5 L, Creatinine 0.76, Estim Creat Clear Calc 76.51, Est GFR (MDRD) Af Amer 105, Est GFR (MDRD) Non-Af 87, BUN/Creatinine Ratio 6.6 L, Glucose 107 H, Calcium 9.0, Magnesium 2.1 Physical Exam Narrative GENERAL: cooperative HEENT: Atraumatic; EYES; Anicteric, Normal Conjunctiva NECK; supple, normal thyroid, RESPIRATORY: Diminished to auscultation CARDIOVASCULAR: Regular S1 S2, GI: soft, normoactive bowel sounds, : No Renal angle tenderness; EXTREMITIES: An area of erythema posterior medial aspect of the right arm MUSCULOSKELETAL: no muscle wasting NEURO: Awake; no lateralizing signs. SKIN: As described above PSYCH; Flat affect Assessment & Plan Assessment/Plan (1) Cellulitis of right upper arm: PLAN: Plan Patient is a 46-year-old female presented with left upper extremity swelling and erythema 1. Left arm cellulitis ? Patient has been admitted to regular nursing floor started on Rocephin and vancomycin blood culture sent ? 05/11/2022 Significant improvement in area of cellulitis involving the right upper extremity. Plan is to assess for possible discharge 2. Recent diagnosis of otitis media ? Patient was treated with Augmentin 3. Rheumatoid arthritis ? Recent diagnosis patient here to be evaluated by rheumatology for initiation of DMARDs 4. Hypertension - Blood pressure controlled, home medications continued with dose adjustment as needed 5. Dyslipidemia -Patient is on statin therapy, continued at home dose 6. GERD ? On PPI 7. Depression ? Patient is on Trintellix 8. DVT prophylaxis ? Low risk encourage early ambulation Charges/Coding Visit Charges Inpatient E&M: 16292 Subs Hosp L2
--- NOTE | 2022-05-11 08:51 | PCM.DC.SUM ---
Providers Date of Admission: 05/10/22 Primary Care Physician: Dr. Jarod Magdaleno MD Reason For Visit: CELLULITIS Diagnosis Discharge Diagnosis (1) Cellulitis of right upper arm: Status: Acute Code(s): L03.113 - Cellulitis of right upper limb Plan Patient is a 46-year-old female presented with left upper extremity swelling and erythema 1. Left arm cellulitis ? Patient has been admitted to regular nursing floor started on Rocephin and vancomycin blood culture sent ? 05/11/2022 Significant improvement in area of cellulitis involving the right upper extremity. Plan is to assess for possible discharge 2. Recent diagnosis of otitis media ? Patient was treated with Augmentin 3. Rheumatoid arthritis ? Recent diagnosis patient here to be evaluated by rheumatology for initiation of DMARDs 4. Hypertension - Blood pressure controlled, home medications continued with dose adjustment as needed 5. Dyslipidemia -Patient is on statin therapy, continued at home dose 6. GERD ? On PPI 7. Depression ? Patient is on Trintellix 8. DVT prophylaxis ? Low risk encourage early ambulation Medications at Discharge Home Medications bupropion HCl 150 mg 24 hr tablet, extended release 150 mg PO QAM 05/06/21 omeprazole 40 mg capsule,delayed release 40 mg PO DAILY #60 caps 05/06/21 lisinopril 5 mg tablet 5 mg PO DAILY 04/12/22 rosuvastatin 10 mg tablet (Crestor) 10 mg PO DAILY 04/12/22 meclizine 25 mg tablet 25 mg PO Q8H PRN PRN Dizziness #20 tabs 05/08/22 multivitamin 1 tab PO DAILY SUPPLEMENT 05/10/22 vortioxetine 10 mg tablet (Trintellix) 10 mg PO DAILY 05/10/22 cefdinir 300 mg capsule 300 mg PO BID #14 caps 05/11/22 Hospital Course Summary of Care Provided Minutes Spent on Discharge: 35 Hospital Course: Patient is a 46-year-old female presented with left upper extremity swelling and erythema 1.? Left arm cellulitis ? Patient has been admitted to regular nursing floor started on Rocephin and vancomycin blood culture sent ? 05/11/2022 patient had a good response to Rocephin and vancomycin. Discharge the day after his admission on cefdinir 2.? Recent diagnosis of otitis media ? Patient was treated with Augmentin 3.? Rheumatoid arthritis ? Recent diagnosis patient here to be evaluated by rheumatology for initiation of DMARDs 4.? Hypertension - Blood pressure controlled, home medications continued with dose adjustment as needed 5.? Dyslipidemia -Patient is on statin therapy, continued at home dose 6.? GERD ? On PPI 7.? Depression ? Patient is on Trintellix 8.? DVT prophylaxis ? Low risk encourage early ambulation Physical Exam Narrative GENERAL: cooperative HEENT: Atraumatic; EYES; Anicteric, Normal Conjunctiva NECK; supple, normal thyroid, RESPIRATORY: Diminished to auscultation CARDIOVASCULAR: Regular S1 S2, GI: soft, normoactive bowel sounds, : No Renal angle tenderness; EXTREMITIES: slight erythema posterior medial aspect of the right arm MUSCULOSKELETAL: no muscle wasting NEURO: Awake; no lateralizing signs. SKIN: As described above PSYCH; Flat affect Weight / BMI Weight Weight: 98.9 kg Body Mass Index (BMI) 38.6 ABG / Lab / Microbiology Data Result Diagrams: 05/11/22 05:25 05/11/22 05:25 Laboratory: Laboratory Results - last 24 hr 05/10/22 15:11: WBC 7.7, RBC 4.45, Hgb 13.0, Hct 40.0, MCV 89.9, MCH 29.2, MCHC 32.5, RDW Std Deviation 41.0, RDW Coeff of Ray 12.4, Plt Count 213, MPV 10.8, Immature Gran % (Auto) 0.300, Neut % (Auto) 64.8, Lymph % (Auto) 28.5, [place] % (Auto) 4.2, Eos % (Auto) 1.7, Baso % (Auto) 0.5, Absolute Neuts (auto) 5.0, Absolute Lymphs (auto) 2.20, Nucleated RBC % 0 05/10/22 15:11: Sodium 135 L, Potassium 3.7, Chloride 103, Carbon Dioxide 26.0, Anion Gap 6, BUN 9, Creatinine 0.79, Estim Creat Clear Calc 73.61, Est GFR (MDRD) Af Amer 100, Est GFR (MDRD) Non-Af 83, BUN/Creatinine Ratio 11.4, Glucose 108 H, Calcium 9.2, Total Bilirubin 1.50 H, AST 22, ALT 47, Alkaline Phosphatase 93, Total Protein 8.2, Albumin 4.2, Globulin 4.0, Albumin/Globulin Ratio 1.0 05/10/22 15:11: Lactic Acid 1.2 05/11/22 05:25: WBC 6.3, RBC 4.07 L, Hgb 11.9 L, Hct 37.1, MCV 91.2, MCH 29.2, MCHC 32.1, RDW Std Deviation 41.7, RDW Coeff of Ray 12.6, Plt Count 188, MPV 11.3, Immature Gran % (Auto) 0.000, Neut % (Auto) 55.4, Lymph % (Auto) 36.1, [place] % (Auto) 5.4, Eos % (Auto) 2.8, Baso % (Auto) 0.3, Absolute Neuts (auto) 3.5, Absolute Lymphs (auto) 2.29, Nucleated RBC % 0 05/11/22 05:25: Sodium 139, Potassium 4.2, Chloride 109 H, Carbon Dioxide 26.0, Anion Gap 4 L, BUN 5 L, Creatinine 0.76, Estim Creat Clear Calc 76.51, Est GFR (MDRD) Af Amer 105, Est GFR (MDRD) Non-Af 87, BUN/Creatinine Ratio 6.6 L, Glucose 107 H, Calcium 9.0, Magnesium 2.1 D/C Instructions Discharge Diet: No restrictions Discharge Activity: Return to Normal Activity Call your doctor if you observe: Fever of 101 or Higher, Shortness of breath, Fainting spells and Chest pain Meaningful Use Info Meaningful Use Diagnoses (Choose all that apply): None applicable Discharge Plan Admission Admit Date/Time: 05/10/22 16:32 Attending Provider: Caio Griffith Primary Care Provider: Jarod Magdaleno Discharge Orders/Prescriptions Prescriptions: New cefdinir 300 mg capsule 300 mg PO BID Qty: 14 0RF Continued omeprazole 40 mg capsule,delayed release(DR/EC) 40 mg PO DAILY Qty: 60 0RF bupropion HCl 150 mg tablet extended release 24 hr 150 mg PO QAM lisinopril 5 mg tablet 5 mg PO DAILY rosuvastatin [Crestor] 10 mg tablet 10 mg PO DAILY meclizine 25 MG tablet 25 mg PO Q8H PRN PRN (Reason: Dizziness) Qty: 20 0RF Trintellix 10 mg Tablet 10 mg PO DAILY multivitamin Tablet 1 tab PO DAILY Discontinued amoxicillin-pot clavulanate 875-125 mg tablet 1 tab PO BID Qty: 20 0RF Referrals / Follow Up: Jarod Magdaleno MD [Primary Care Provider] - In 1 Day Disposition Disposition (needs filled in before D/C Order can be placed): Home, Self Care Charges/Coding Visit Charges Inpatient E&M: 01620 Disch Hosp
[2022-05-11 09:45] VITALS: BP 139/85; PULSE 93; RESP 16; TEMP 36.6; O2SAT 98
[2022-05-11] MEDS: 0.9% Saline Lock 10 ML Syringe IV ×2 (09:50→10:43)
[2022-05-11] MEDS: Ceftriaxone 1 GM/50 ML BAG IV (09:50)
[2022-05-11] MEDS: Lisinopril 5 MG Tablet PO (09:50)
[2022-05-11] MEDS: Multivitamins,Therapeutic Tablet 1 TABLET PO (09:50)
[2022-05-11] MEDS: buPROPion (XL) 150 MG TABLET.XL PO (09:50)
[2022-05-11] MEDS: Pantoprazole Sodium 40 MG Tablet PO (09:50)
== END 2022-05-11 08:55 | disposition home or self-care (01) ==
LOC: ED 16:35 → PCU 05-11 08:28
PROVIDERS: Admitting Provider Internal Medicine; Emergency Provider Emergency Medicine; PCP Family Medicine; Visit Provider Internal Medicine
DX: L03.113 Cellulitis of right upper limb (principal); M06.9 Rheumatoid arthritis, unspecified; E78.5 Hyperlipidemia, unspecified; H66.90 Otitis media, unspecified, unspecified ear; I10 Essential (primary) hypertension; K21.9 Gastro-esophageal reflux disease without esophagitis; F32.A Depression, unspecified; Z79.899 Other long term (current) drug therapy
CPT/HCPCS: 36415; 80048; 80053; 83605; 83735; 85025; 87040; 96365; 96366; 96367; 99218; 99283; J7030; J7040; J7050; A4216; G0378; J0295

== ENCOUNTER 2022-08-03 08:29 | Emergency (ER) | payer OTHER, SELFPAY ==
[2022-08-03 08:31] VITALS: BP 165/100; PULSE 103; RESP 17; TEMP 35.6; O2SAT 98; BMI 37.0
--- NOTE | 2022-08-03 09:05 | EDS_ITS ---
HPI History of Present Illness Chief Complaint: Dizziness Detail of Chief Complaint: Dizziness worse over the last 2 weeks Informant: patient Narrative Narrative: Patient presents with dizziness that is worsened over the last 2 weeks. Patient complains of spinning sensation especially with standing and walking intermittently. Patient complains of exertional dyspnea. She was seen in April in the emergency department for an episode of syncope and associated dizziness and diagnosed with vertigo and an ear infection. Patient has been taken Antivert and seems to help at times. She is been seen by her primary care physician twice. She is had no imaging. She denies headaches. Patient complains of diaphoresis and nausea and vomiting associated with this dizziness. Patient denies recent illness. Patient has never been diagnosed with COVID. She denies urinary symptoms. Patient states that she also recently had her thyroid levels checked and they were normal. Prior similar symptoms: Yes PFSH [facility] Medical History (Updated 08/03/22 @ 11:[address] Leonor Noland, DO) Abdominal pain Alcohol use Anxiety Arthritis Blood in stool Chest pain Depression Diarrhea Easy bruising Fatigue GERD (gastroesophageal reflux disease) GI bleed Hay fever Heartburn History of echocardiogram History of rheumatoid arthritis History of stress test History of use of contraceptive intrauterine device (IUD) Hypertension Knee pain Nausea Non-smoker Rheumatoid arthritis Seasonal allergies unexplained bruises Wears glasses Wears partial dentures Weight loss Home Medications bupropion HCl 150 mg 24 hr tablet, extended release 150 mg PO QAM 05/06/21 [History Last Taken 05/10/22] omeprazole 40 mg capsule,delayed release 40 mg PO DAILY #60 caps 05/06/21 [Rx Last Taken 05/10/22] lisinopril 5 mg tablet 5 mg PO DAILY 04/12/22 [History Last Taken 05/10/22] rosuvastatin 10 mg tablet (Crestor) 10 mg PO DAILY 04/12/22 [History Last Taken 05/10/22] meclizine 25 mg tablet 25 mg PO Q8H PRN PRN Dizziness #20 tabs 05/08/22 [Rx Last Taken Unknown] multivitamin 1 tab PO DAILY SUPPLEMENT 05/10/22 [History Last Taken 05/10/22] vortioxetine 10 mg tablet (Trintellix) 10 mg PO DAILY 05/10/22 [History Last Taken 05/10/22] lorazepam 1 mg tablet (Ativan) 1 mg PO TID PRN anxiety #10 tabs 08/03/22 [Rx Last Taken Unknown] ondansetron 4 mg disintegrating tablet 4 mg PO Q8H PRN PRN Nausea #10 tabs 08/03/22 [Rx Last Taken Unknown] Allergy/AdvReac Type Severity Reaction Status Date / Time No Known Allergies Allergy Verified 08/03/22 08:30 Family History Mother Arthritis Breast cancer Hypertension Hypercholesterolemia Skin cancer Father CVA (cerebral vascular accident) Other Heart disease Surgical History History of arthroscopy of left knee History of cholecystectomy Social History household members: spouse current occupational status: employed current occupation: [employer] Smoking Status: Never smoker alcohol intake: current substance use type: does not use what type of physical activity do you participate in: yoga and aerobics frequency: 3-4 times per week seatbelt use: always do you feel safe at home: Yes additional social history: - [place] ROS ROS ED Review of Systems ROS Unobtainable: other Constitutional Constitutional ED: Reports lethargy; Denies chills, fever(s), sweats or weight loss Eyes Eyes: Denies blurry vision, change in vision or diplopia ENT ENT ED: Denies rhinorrhea or sore throat Cardiovascular Cardiovascular: Denies chest pain, orthopnea or racing heartbeat Respiratory/Chest Respiratory/Chest: Reports dyspnea and dyspnea on exertion; Denies cough, orthopnea or sputum Gastrointestinal Gastrointestinal: Reports nausea and vomiting; Denies abdominal pain or diarrhea Genitourinary Genitourinary ED: Denies dysuria, hematuria or urinary frequency Musculoskeletal Musculoskeletal: Denies arthralgias, back pain, myalgias or neck pain Integumentary Denies abscess, Abrasions or rash Neurologic Neurologic: Reports other Details: Vertigo and dizziness ; Denies headache(s) or weakness Psychiatric Psychiatric: Denies anxiety, depression or suicidal thoughts Endocrine Endocrinology: Denies polydipsia, polyphagia or polyuria Hematologic/Lymphatic Hematologic/Lymphatic: Denies easy bleeding, easy bruising or lymphadenopathy Allergic/Immunologic Allergic/Immunologic ED: Denies mouth swelling, tongue swelling or urticaria EXAM Physical Exam Const Vital Signs: 08/03/22 08:31 08/03/22 09:22 08/03/22 09:11 Temperature 96.0 F L Temperature Source Temporal Pulse Rate 103 H Pulse Rate [Lying] 78 Pulse Rate [Sitting (for 1 minute prior to obtaining)] 79 Pulse Rate [Standing (for 1 minute prior to obtaining)] 89 Respiratory Rate 17 Respiratory Effort Normal Respiratory Pattern Normal Blood Pressure 165/100 H Blood Pressure [Lying] 146/81 H Blood Pressure [Sitting (for 1 minute prior to obtaining)] 140/88 H Blood Pressure [Standing (for 1 minute prior to obtaining)] 150/96 H Blood Pressure Mean 121 Blood Pressure Mean [Lying] 102 Blood Pressure Mean [Sitting (for 1 minute prior to obtaining)] 105 Blood Pressure Mean [Standing (for 1 minute prior to obtaining)] 114 Pulse Ox 98 Oxygen Delivery Method Room Air Positive well nourished and well developed General Appearance ED: well developed and NAD HEENT Reports TM's clear and moist mucous membranes normocephalic and atraumatic; Negative for trauma or tenderness Tympanic Membrane ED: Yes TM's clear Eyes PERRL and EOMs intact bilaterally General Eye ED: Negative for pale conjunctiva or scleral icterus Neck no lymphadenopathy, supple and no JVD General: Negative for tenderness Chest Wall inspection of chest normal and palpation of chest normal Chest: Negative for tenderness Resp normal respiratory effort and clear to auscultation bilaterally Effort and Inspection: Negative for respiratory distress or pain with movement Auscultation: Negative for rhonchi, wheezes or diminished lung sounds Cardio regular rate, regular rhythm, S1 normal heart sound, S2 normal heart sound and no murmurs Peripheral Pulses: pulses 2+ throughout GI normal to inspection, nondistended, normoactive bowel sounds, soft to palpation, non-tender, non-distended and no masses Back/Spine no CVA tenderness and no thoracic nor lumbar tenderness Extremity normal to inspection General Extremety ED: Negative for edema General Extremity: Negative for edema Neuro oriented x3, CN's II-XII intact bilaterally, no sensory deficits noted and gait normal Neuro Narrative: Hallpike maneuver performed and negative for nystagmus and could not reproduce symptoms. Sensorium / Orientation: awake, alert, oriented to person, oriented to place and oriented to time Motor Exam: strength 5/5 throughout and strength abnormal Psych mental status grossly normal Skin no rashes or lesions noted and no wounds MDM MDM MDM Narrative Medical decision making narrative: IV line established. Patient given normal saline. Patient given Zofran 4 mg IV. Symptomatically she felt much improved. Lab work-up was normal. D-dimer was normal. CTA of head and neck were normal. Urinalysis was normal. Patient's Hallpike maneuver was negative and I could not reproduce nystagmus or her symptoms. At this point she will be discharged to home with a prescription for Zofran and Ativan as needed for the vertigo as she does not feel like the meclizine is helping very much. Patient will be referred to neurology for follow-up as she may need further work-up and evaluation such as possibly MRI of the brain. Patient comfortable with plan going forward. She is advised to return if condition should worsen anyway. Lab Data Attestation: I reviewed the patient's lab results. Labs: Laboratory Results - last 24 hr 08/03/22 08/03/22 08/03/22 09:10 09:10 09:10 WBC 6.7 RBC 4.50 Hgb 13.7 Hct 40.9 MCV 90.9 MCH 30.4 MCHC 33.5 RDW Std Deviation 40.3 RDW Coeff of Ray 12.3 Plt Count 236 MPV 11.0 Immature Gran % (Auto) 0.100 Neut % (Auto) 70.2 H Lymph % (Auto) 22.7 [place] % (Auto) 3.7 Eos % (Auto) 2.4 Baso % (Auto) 0.9 Absolute Neuts (auto) 4.7 Absolute Lymphs (auto) 1.52 Nucleated RBC % 0 D-Dimer Quant (PE/DVT) 0.34 Sodium 137 Potassium 4.1 Chloride 104 Carbon Dioxide 27.0 Anion Gap 6 BUN 11 Creatinine 0.94 Estim Creat Clear Calc 61.86 Est GFR (MDRD) Af Amer 82 Est GFR (MDRD) Non-Af 68 BUN/Creatinine Ratio 11.7 Glucose 125 H Calcium 9.5 Troponin I High Sens < 3 L Urine Color Urine Clarity Urine pH Ur Specific [place] Urine Protein Urine Glucose (UA) Urine Ketones Urine Occult Blood Urine Nitrite Urine Bilirubin Urine Urobilinogen Ur Leukocyte Esterase Urine RBC Urine WBC Ur Squamous Epith Cells Urine Bacteria Urine Mucus 08/03/22 10:41 WBC RBC Hgb Hct MCV MCH MCHC RDW Std Deviation RDW Coeff of Ray Plt Count MPV Immature Gran % (Auto) Neut % (Auto) Lymph % (Auto) [place] % (Auto) Eos % (Auto) Baso % (Auto) Absolute Neuts (auto) Absolute Lymphs (auto) Nucleated RBC % D-Dimer Quant (PE/DVT) Sodium Potassium Chloride Carbon Dioxide Anion Gap BUN Creatinine Estim Creat Clear Calc Est GFR (MDRD) Af Amer Est GFR (MDRD) Non-Af BUN/Creatinine Ratio Glucose Calcium Troponin I High Sens Urine Color Yellow Urine Clarity Clear Urine pH 7.0 Ur Specific [place] 1.005 Urine Protein Negative Urine Glucose (UA) Normal Urine Ketones Negative Urine Occult Blood Negative Urine Nitrite Negative Urine Bilirubin Negative Urine Urobilinogen Normal Ur Leukocyte Esterase Negative Urine RBC 0-5 SEEN Urine WBC 0 SEEN Ur Squamous Epith Cells 0-5 SEEN Urine Bacteria RARE Urine Mucus 0 SEEN Radiography Diagnostic Testing: Clinical Impression(s) from Imaging Studies Head/Neck CTA 08/03/22 10:10 IMPRESSION: Normal CTA Head and neck with contrast. Electronically Signed: Sukhwinder Corley MD at 10:39 EDT , EKG Initial EKG: Attestation: I personally reviewed and interpreted this EKG as follows: Comments: Sinus rhythm with a rate of [address] changes Discharge Plan Triage Chief Complaint: Dizziness ED Provider: Leonor Noland Dx/Rx/DC Orders Clinical Impression: Dizziness Instructions: ED Dizziness, Uncertain Cause Prescriptions: New ondansetron [ondansetron] 4 mg tablet,disintegrating 4 mg PO Q8H PRN PRN (Reason: Nausea) Qty: 10 0RF lorazepam [Ativan] 1 mg tablet 1 mg PO TID PRN (Reason: anxiety) Qty: 10 0RF No Action omeprazole 40 mg capsule,delayed release(DR/EC) 40 mg PO DAILY Qty: 60 0RF bupropion HCl 150 mg tablet extended release 24 hr 150 mg PO QAM lisinopril 5 mg tablet 5 mg PO DAILY rosuvastatin [Crestor] 10 mg tablet 10 mg PO DAILY meclizine 25 MG tablet 25 mg PO Q8H PRN PRN (Reason: Dizziness) Qty: 20 0RF Trintellix 10 mg Tablet 10 mg PO DAILY multivitamin Tablet 1 tab PO DAILY Primary Care Provider: Jarod Magdaleno Referrals: Jarod Magdaleno MD [Primary Care Provider] - Darin Velasquez MD [Non-Staff -Ordering Privileges] - 3-5 Days Disposition Disposition: Home, Self Care
[2022-08-03 09:11] VITALS: BP 140/88; BP 146/81; BP 150/96; PULSE 78; PULSE 79; PULSE 89
[2022-08-03] MEDS: Ondansetron 4 MG/2 ML Vial IV (09:19)
[2022-08-03] MEDS: 0.9% Normal Saline 1,000 ML 150 ML IV (09:20)
[2022-08-03 09:27] LABS: Absolute Lymphocyte Count 1.52 X10^3/uL (0.83-4.51); Absolute Neutrophil Count 4.7 X10^3/uL (2.0-7.7); Basophil# 0.06 X10^3/uL; Basophil% 0.9 % (0-1); Eosinophil# 0.16 X10^3/uL; Eosinophils% 2.4 % (0-5); Hematocrit 40.9 % (37-47); Hemoglobin 13.7 g/dL (12.0-15.0); Lymphocyte # 1.52 X10^3/ul (0.83-4.51); Lymphocyte % 22.7 % (19-41); Mean Corp Hgb Conc 33.5 g/dL (32-36); Mean Corpuscular Hgb 30.4 pg (27.0-32.0); Mean Corpuscular Volume 90.9 fL (81-99); Monocyte# 0.25 X10^3/uL; Monocyte% 3.7 % (0-10); NRBC Flagged by Analyzer 0 % (0-5); Neutrophil # 4.69 X10^3/uL (2.7-7.7); Neutrophil % 70.2 % (47-70); Platelet Count 236 K/mm3 (150-450); RBC Distribution Width CV 12.3 % (11.6-14.6); RBC Distribution Width SD 40.3 fl (35.1-43.9); White Blood Count 6.7 K/mm3 (4.4-11.0)
[2022-08-03 09:48] LABS: Anion Gap 6 (5-15); BUN 11 mg/dL (7-18); BUN/Creat Ratio 11.7 RATIO (10-20); Calcium,Total 9.5 mg/dL (8.5-10.1); Chloride 104 mmol/L (98-107); Creatinine, Serum 0.94 mg/dL (0.55-1.02); EST Glomerular Filtration Rate 68 mL/min (>60); Est Glom Filt Rate - Afr Amer 82 mL/min (>60); Estimated Creatinine Clearance 61.86 ml/min; Glucose 125 mg/dL (74-106); Potassium 4.1 mmol/L (3.5-5.1); Sodium Level 137 mmol/L (136-145); Troponin-I HS < 3 pg/mL (3.0-54.0)
[2022-08-03 09:56] LABS: D-Dimer Quantitative (DVT/PE) 0.34 FEU/ug/m (0.27-0.49)
--- NOTE | 2022-08-03 10:10 | CT_ITS ---
STUDY: CTA HEAD AND NECK WITH CONTRAST REASON FOR EXAM: Female, 46 years old. Vertigo RADIATION DOSAGE (If Supplied By Facility): CTDIvol = ( 24.70 ) mGy, DLP = ( 1652.85 ) mGycm TECHNIQUE: CT angiography was performed with a multi-detector CT scanner. Data acquisition was obtained from the skull base through the vertex following intravenous administration of IV 100mL [id number]-[id number]. MIP images were reconstructed from the axial data set. Post-processing of the angiographic images was performed, with multiplanar reformation and 3D reconstruction. Individualized dose optimization techniques were used for this CT. COMPARISON: No relevant priors. FINDINGS: Normal bilateral petrous carotid arteries. Normal right cavernous carotid artery with a normal supraclinoid bifurcation. Normal left cavernous carotid artery with a normal supraclinoid bifurcation. Normal right A1 segments of the anterior cerebral artery. Normal left A1 segments of the anterior cerebral artery. Normal intact anterior communicating artery (ACOM). Normal bilateral A2 segments of the anterior cerebral arteries. Normal right M1 and M2 segments of the middle cerebral arteries, with a normal M1 bifurcation. Normal left M1 and M2 segments of the middle cerebral arteries, with a normal M1 bifurcation. Normal right posterior communicating artery (PCOM). Normal left posterior communicating artery (PCOM). Normal bilateral vertebral arteries. Normal basilar artery with a normal basilar bifurcation. The visualized bilateral superior cerebellar (SCA) arteries are normal. Normal bilateral P1, P2 and visualized P3 segments of the posterior cerebral arteries. There is no demonstrated aneurysm of the [place]. Minimal mucosal thickening along the medial wall of the left sphenoid sinus. AORTIC ARCH: Normal visualized aortic arch. Normal origins of the brachiocephalic, left common carotid, and left subclavian arteries. RIGHT CAROTID ARTERIES: Normal right common carotid artery (CCA). Normal right common carotid bulb. Normal origin of the right internal carotid (ICA) artery without a hemodynamically significant stenosis. Normal visualized cervical portion of the right internal carotid artery. Normal origin of the right external carotid artery (ECA). LEFT CAROTID ARTERIES: Normal left common carotid artery (CCA). Normal left common carotid bulb. Normal origin of the left internal carotid (ICA) artery without a hemodynamically significant stenosis. Normal visualized cervical portion of the left internal carotid artery. Normal origin of the left external carotid artery (ECA). VERTEBRAL ARTERIES: Normal bilateral vertebral arteries. CT/CTA Head AND Neck W/ Contrast IMPRESSION: Normal CTA Head and neck with contrast. Electronically Signed: Sukhwinder Corley MD at 10:39 EDT ,
[2022-08-03 10:52] LABS: Mucous, Urine 0 SEEN /hpf (<or=2+); White Blood Cells 0 SEEN /hpf (0-5)
[2022-08-03 10:55] LABS: Color, Urine Yellow (Yellow); Glucose, Dipstick Normal (Normal); Ketone-Dipstick Negative (Negative); Leukocyte Esterase-Dipstick Negative /ul (Negative); Nitrite-Dipstick Negative (Negative); Occult Blood-Urine Negative /ul (Negative); Protein-Dipstick Negative (Negative); Specific Gravity, Urine 1.005 (1.002-1.030); Urine Bilirubin Dipstick Negative (Negative); Urine Clarity Clear (Clear); Urine Urobilinogen Normal (Normal)
[2022-08-03 11:06] LABS: Bacteria RARE /hpf (None Seen); Red Blood Cells-Urine 0-5 SEEN /hpf (0-5); Squamous Epithelial Cells - UA 0-5 SEEN /hpf (5-10)
[2022-08-03 12:21] VITALS: BP 134/76; PULSE 84; RESP 16; O2SAT 98
== END 2022-08-03 12:23 | disposition home or self-care (01) ==
PROVIDERS: Emergency Provider Emergency Medicine; PCP Family Medicine; Visit Provider Emergency Medicine
DX: R42 Dizziness and giddiness (principal); I10 Essential (primary) hypertension; Z79.899 Other long term (current) drug therapy
CPT/HCPCS: 70496; 70498; 80048; 81001; 84484; 85025; 85379; 93005; 96361; 96374; 99284; J7030; Q9967; A4216; J2405

== ENCOUNTER 2023-04-02 08:00 | Outpatient (RCR) | payer OTHER, SELFPAY ==
--- NOTE | 2023-04-02 09:00 | BH.SGPN.GN ---
Behaviors/Verbalizations/Mental Status: [] Eye contact is good. Motor activity is appropriate. Appearance is casual. Speech is Appropriate. Mood is depressed/anxious. Affect is congruent. Thoughts are linear and logical. No evidence of psychosis. Reviewed daily check in sheet and no reports of suicidal ideations or intent. Tearful. Client Response/Progress/Benefit: [] Pt participated at times during the group discussion. Attentive. Shared with the group that today is her first day in IOP. In the past several months her anxiety and depression have been impacting her functioning at home and work. Reports panic attacks, isolation, no energy, and states overall things are out of control. Shared that her anxiety is also causing somatic symptoms such as vomiting throughout the day. It has been challenging for her to leave the house and be social. Benefited from group support, encouragement, and feedback. Will continue in IOP to prevent decompensation, stabilize mood, and improve functioning to return to work. Narrative Note: []
--- NOTE | 2023-04-02 10:10 | BH.SGPN.GN ---
Behaviors/Verbalizations/Mental Status: [] Client alert and oriented, neatly dressed and groomed. Eye contact good. Motor activity appropriate. Speech within normal limits. Affect congruent, mood euthymic. Thoughts linear, logical, no signs of hallucinations or delusions. Client Response/Progress/Benefit: [ ] Client first day in program and was an active participant in group discussions. Attentive during psychoeducation on 4 types of conflict styles (Competing, Collaborating, Avoiding, and Accommodating). Worked with group to define conflict and identify how conflict is helpful. With peers identified barriers to addressing or managing conflict which included:not wanting to hurt others, lack of communication skills, and cognitive distortions. Client believes they used to use the cooperative style when dealing with conflict, but has been accommodating due to work stress, client said it initially helped her, but not she is experiencing struggle with it with feeling unheard. Benefited from group due to increase insight and awareness of benefits to conflict, conflict styles, and obstacles to managing conflict. Will continue in IOP to prevent decompensation, challenge negative thought patterns, and increase overall functioning. Narrative Note: []
--- NOTE | 2023-04-02 11:10 | BH.SGPN.GN ---
Behaviors/Verbalizations/Mental Status: [] Client alert and oriented, neatly dressed and groomed. Eye contact good. Motor activity appropriate. Speech within normal limits. Affect congruent, mood euthymic. Thoughts linear, logical, no signs of hallucinations or delusions. Client Response/Progress/Benefit: [] Client 1st day in program engaged in session AEB contributing to discussion and engaging in activity. Attentive during discussion on strategies for more effectively managing conflict in personal life. Client participated in activity and did well to be assertive and collaborating in small group. Client given handout on fair fighting rules. Client indicated that she was going to work on expressing feelings with words. Appeared to benefit from gaining strategies to help client better manage conflict. Will continue IOP tx to reduce negative thinking patterns, increase overall functioning, and increase self-care. Narrative Note: []
--- NOTE | 2023-04-02 15:43 | BH.MTP ---
Master Treatment Plan Patient Information Program Physician:: Dr. Ruano Primary Therapist:: Marcia Carson, [facility] Psychiatric Diagnoses Psychiatric Diagnoses:: 1. Major depressive disorder recurrent, severe without psychosis 2. Panic disorder 3. PTSD 4. Generalized anxiety disorder Diagnosis Code(s):: F33.2 Estimated LOS Estimated LOS (in weeks):: 6 Problem/Goal #1 Problem/Goal #1 Stated Goal:: Client will decrease depressive symptoms, hopelessness, and worthlessness due to Major Depressive Disorder through Intensive Outpatient Program.? Description of Barriers: Potential treatment barriers include: negative thinking, guilt about taking time off work, distorted thinking, and familial stressors. Functional Impact: Pt's anxiety has been negatively impacting her ability to function at work due to severe anxiety when going into work which has resulted in pt vomiting when at work. Pt was getting sick throughout the day up to 10 times a day. Following her work day pt's depression would lead her to go home and lay in bed most of the evening. Isolated from friends and stopped engaging in activities she used to enjoy. Objectives Objective #1: Stated Objective: Client will learn and utilize 2-3 healthy coping strategies to manage depressive symptoms. Interventions: Therapist will utilize CBT techniques to assist client with understanding the connection between thoughts, feelings and behaviors. Education will be provided on behavioral activation. Therapist will assist client in learning internal coping strategies to manage depressive symptoms, along with helping client identify triggers. Discharge Criteria: Client will have achieved this goal when can verbalize and has practiced at least 2 healthy coping strategies that successfully manage depressive symptoms. Objective #2: Stated Objective: Pt will decrease depressive symptoms AEB pt?s score on the DSM 5 cross-cutting measure and improve pt?s daily functioning. Interventions: Through groups and individual therapy, pt will be provided with education on cognitive distortions, mistaken beliefs, and identifying and combating negative self-talk. Therapist will assist pt with getting back into the activities she once enjoyed as well as increasing healthy coping strategies. Discharge Criteria: Pt will have met this goal when pt?s score on the DSM 5 cross cutting measure for depression has been decreased and per pt?s report daily functioning has improved. Problem/Goal #2 Problem/Goal #2 Stated Goal:: Client will reduce overall frequency, intensity, and duration of the anxiety so that daily functioning is not impaired.? Description of Barriers: Potential treatment barriers include: negative thinking, guilt about taking time off work, distorted thinking, and familial stressors. Functional Impact: Pt's anxiety has been negatively impacting her ability to function at work due to severe anxiety when going into work which has resulted in pt vomiting when at work. Pt was getting sick throughout the day up to 10 times a day. Following her work day pt's depression would lead her to go home and lay in bed most of the evening. Isolated from friends and stopped engaging in activities she used to enjoy. Objectives Objective #1: Stated Objective: Client will learn and implement 2-3 calming skills to reduce overall anxiety and manage anxiety symptoms. Interventions: Therapist and group sessions will help client identify physiological warning signs of anxiety, increase awareness of thoughts that increase anxiety, and identify behaviors that reinforce anxious symptoms. Group and individual counseling will teach client calming skills to help manage anxious symptoms. Discharge Criteria: Client will have achieved this goal when can verbalize at least 2 calming skills and reports skills successfully help reduce anxious symptoms. Objective #2: Stated Objective: Pt will decrease anxious symptoms AEB pt?s score on the DSM 5 cross-cutting measure improve pt?s daily functioning. Interventions: Through groups and individual therapy, pt will be provided education about anxiety?s impact on body and common physiological reaction to anxiety. Therapist will teach pt appropriate breathing techniques and build healthy coping skills to manage daily anxieties. Discharge Criteria: Pt will have met this goal when pt?s score on the DSM 5 cross cutting measure for anxiety has been decreased and per pt?s report daily functioning has improved.
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
--- NOTE | 2023-04-04 11:10 | BH.SGPN.GN ---
Behaviors/Verbalizations/Mental Status: []Client alert and oriented, casually dressed and groomed. Eye contact good. Motor activity appropriate. Speech within normal limits. Affect congruent to topics being discussed, mood anxious and positive. Thoughts linear, logical, no signs of hallucinations or delusions. Client Response/Progress/Benefit: []Client an active participant, encouraging peers and contributed as group brainstormed ideas on how to cope with internal barriers that keep clients stuck from moving towards goals. Able to identify barriers to desired reality. Worked with group to identify strategies to help overcome barriers. Identified personal barriers to desired reality. Client wants to work on overcoming the barrier of avoidance by using opposite action to go to a yoga class this week. Benefited from group by identifying obstacles and solutions to desired reality. Client to continue IOP to decrease anxiety, increase healthy coping, and prevent decompensation.
[2023-04-04 11:44] VITALS: BP 141/91; PULSE 84
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
--- NOTE | 2023-04-04 12:51 | BH.PSY.EVA_ITS ---
Initial Treatment Plan Patient Information Visit Information: ADMISSION DATE: EXPECTED LOS: 4-6 weeks Problems/Symptoms Problem #1:: Depression Symptom:: Sadness, hopelessness, worthlessness, biological disruption of sleep, biological disruption of appetite, guilt Problem #2:: Anxiety Symptom:: Panic attacks, worry, rumination, hypervigilance, flashbacks, avoid ance, nightmares
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
--- NOTE | 2023-04-05 13:49 | BH.MTP ---
[facility] Treatment Plan - Patient Information Program Physician:: Dr. Ruano Primary Therapist:: SUPRIYA Hutchison-S
--- NOTE | 2023-04-05 14:49 | BH.PSA ---
Development & Family of Origin - Family History Family History: Family History (Last Reviewed 05/10/22 @ 16:[address] Caio Griffith MD) Mother Arthritis Breast cancer Hypertension Hypercholesterolemia Skin cancer Father CVA (cerebral vascular accident) Other Heart disease Suicide Assessment Treatment Plan Recommendations
--- NOTE | 2023-04-06 09:00 | BH.SGPN.GN ---
Behaviors/Verbalizations/Mental Status: [] Client alert and oriented, casually dressed and groomed. Eye contact good. Motor activity appropriate. Speech within normal limits. Affect congruent, mood euthymic. Thoughts linear, logical, no signs of hallucinations or delusions. Reviewed client?s symptom tracker, no risk for suicidal ideation, plan, or intent as of 04/06/23 Client Response/Progress/Benefit: []Client responded well to session, offering ideas to peers and providing encouragement. Client reports feeling balanced this morning. Client shared that she slept 6 hours in a row which is something she has not done for awhile and indicated that medication changes and journaling before bed has made this more successful. Client also shared that she has went a full 24 hours without a panic attack. Client shared stressor of thinking about work and projects that are currently going on without her there, which she has been struggling to separate herself from. Client appeared to benefit from reflecting on her growth and discussing challenges. Client will continue IOP tx as Client continues to struggle with anxious thoughts and emotional regulation. Narrative Note: []
--- NOTE | 2023-04-06 10:10 | BH.SGPN.GN ---
Behaviors/Verbalizations/Mental Status: [] Eye contact is good. Motor activity is appropriate. Appearance is causal. Speech is Appropriate. Mood is anxious. Affect is congruent. Thoughts are linear and logical. No evidence of psychosis Client Response/Progress/Benefit: [] Pt participated at times during group discussions. Attentive during psychoeducation. Engaged during experiential activity in which she was tasked with managing emotions related to accepting limited control of the activity. Participated during interactive discussion as group worked to define and better understand the role and benefits of acceptance in mental health. Along with peers worked to identify barriers to acceptance which include; feeling out of control, feeling like one is giving up, leads to uncertainty of lack of control, can lead to feeling like a failure, makes one feel weak or vulnerable, and several others. Benefited from increased insight of the benefits and barriers to acceptance in mental health. Plan is to continue in IOP to prevent decompensation, increase healthy coping, and improve functioning to return to work. Narrative Note: []
--- NOTE | 2023-04-06 11:10 | BH.SGPN.GN ---
Behaviors/Verbalizations/Mental Status: []Pt alert and oriented, casually dressed and groomed. Eye contact good. Motor activity appropriate. Speech within normal limits. Affect congruent, mood dysthymic and anxious. Thoughts linear, logical, no signs of hallucinations or delusions. Client Response/Progress/Benefit: []Pt responded well to session AEB taking notes and contributing to discussion throughout. Pt engaged as group continued discussion on acceptance and the mental health benefits of practicing acceptance. Pt and peers identified what makes acceptance challenging and pt completed a self-reflection exercise on what is hard to accept in pt's life. Pt identified struggling to accept struggling with her mental health and not functioning at the level she is used to. Group identified strategies to increase acceptance and pt shared wanting to focus on actively engaging in the therapeutic process and being honest about her emotions as ways to continue to improve personal acceptance. Pt appeared to benefit from gaining insight and learning strategies to increase acceptance. Pt will continue IOP tx to decrease anxiety, improve ability to recognize and learn to cope with triggers, and prevent decompensation. Narrative Note: []
--- NOTE | 2023-04-09 09:05 | BH.SGPN.GN ---
Behaviors/Verbalizations/Mental Status: [] Eye contact is good. Motor activity is appropriate. Appearance is casual. Speech is Appropriate. Mood is anxious. Affect is congruent. Thoughts are linear and logical. No evidence of psychosis. Client Response/Progress/Benefit: [] Pt participated at times during the group discussion. Attentive. Mental health win was she ? attended two yoga classes?. This was a win b/c she has been isolating and avoiding activities that in the past were beneficial to her. She attended the classes without panic attacks. 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 Tearful throughout her check-in. Benefited from group support, encouragement, and feedback. Progress noted as she reports reduced panic and increased activities. Ayan continue in IOP to prevent decompensation, stabilize mood, and improve functioning. Emotion for today is ? anxious?. Narrative Note: []
--- NOTE | 2023-04-09 10:05 | BH.SGPN.GN ---
Behaviors/Verbalizations/Mental Status: []Pt alert and oriented, casually dressed and groomed. Eye contact good. Motor activity appropriate. Speech within normal limits. Affect constricted, mood depressed. Thoughts linear, logical, no signs of hallucinations or delusions. Client Response/Progress/Benefit: []Pt was an active participant AEB contributing to discussion, taking notes, and engaging in group activity. Connected with the topic of pitfalls and listened to group discussion on internal and external barriers that prevent from choosing a healthier path to mental wellness. Group worked together to identify examples of personal internal pitfalls and pt identified hers as struggling to admit the need for mental health help and shutting down as a result.? Pt benefited from group as Pt learned to better identify and normalize potential barriers to improving mental health symptoms. Pt will continue IOP tx to prevent decompensation, increase stress management skills, and gain skills for healthy communication with supports. ? Narrative Note: []
--- NOTE | 2023-04-09 11:10 | BH.SGPN.GN ---
Behaviors/Verbalizations/Mental Status: []Pt alert and oriented, neatly dressed and groomed. Eye contact good. Motor activity appropriate. Speech within normal limits. Affect congruent, mood anxious. Thoughts linear, logical, no signs of hallucinations or delusions. Client Response/Progress/Benefit: []Pt receptive of session, engaged throughout AEB actively listening and contributing to discussion, as well as taking notes.? Pt participated in the experiential activity and did well to communicate ideas with peers and manage emotions. Pt and group processed how being open-minded and having good communication positively impacted the group. Group worked together to identify different coping skills to help manage pitfalls. Pt identified pitfalls they struggle with and shared wanting to work on pitfall of avoidance and isolation by continuing to use opposite action and communicate. ?Benefited from identifying personal pitfalls and strategies to overcome these pitfalls. Will continue IOP tx to prevent decompensation, combat distortions, and increase emotional regulation skills. Narrative Note: []
--- NOTE | 2023-04-10 09:00 | BH.SGPN.GN ---
Behaviors/Verbalizations/Mental Status: [] Eye contact is good. Motor activity is appropriate. Appearance is casual. Speech is Appropriate. Mood is anxious. Affect is congruent. Thoughts are linear and logical. No evidence of psychosis. Reviewed daily check in sheet and no reports of suicidal ideations or intent. Client Response/Progress/Benefit: [] Pt engaged in group session AEB sharing thoughts and feelings and listening attentively to others. Pt reported mental health positive as being able to read for thirty minutes yesterday which is the first time she was able to read for that long in 6-9 months. Pt stated additional positive as using opposite action to go on a walk while listening to a podcast. Pt reported current stressor is trying to navigate her son living home again while he recovers from his injury because it's brought up some conflict that she is trying to manage. Seemed to benefit from support from peers. Will continue in IOP to increase healthy coping, challenge negative thinking, and prevent decompensation.
--- NOTE | 2023-04-10 10:05 | BH.SGPN.GN ---
Behaviors/Verbalizations/Mental Status: []Eye contact is good. Motor activity is appropriate. Appearance is casual. Speech is Appropriate. Mood is depressed and anxious. Affect is congruent. Thoughts are linear and logical. No evidence of psychosis. Client Response/Progress/Benefit: []Pt was an active participant in group discussion. Attentive during psychoeducation on the CBT [place] (Thoughts, Behaviors, Emotions). Engaged in group discussion on how thoughts and behaviors can contribute to maintaining adverse feelings, such as depression, anxiety, and irritability. Completed worksheet in which pt identified a thought that is keeping them stuck or is in obstacle to increased mental wellness. The thoughts that pt identified were ?today is a terrible day?, ?I wish I could skip today?, and ?Why does this always happen to me??. Pt benefited from increased awareness of the basis of CBT therapy as well as specific thoughts that are impacting pt' progress. Will continue in IOP to reduce sx, prevent decompensation, and to increase healthy coping skills. Narrative Note: []
--- NOTE | 2023-04-10 14:48 | BH.MDN ---
Multi-Disciplinary Note - Note 60-min Individual Time Started:: 11:10 Date: 04/10/23 Purpose of session/treatment goals addressed:: Purpose of session was to address goals 1 and 2 from MTP. Eye Contact:: Good Motor Activity:: Appropriate Appearance:: Casual Speech:: Appropriate Mood:: Anxious, Dysthymic Affect:: Congruent Thoughts:: Linear, Logical, No evidence of hallucinations/delusions noted Staff Interventions:: thought challenging, psychoeducation on: - Complex trauma, CBT techniques, mindfulness skills, rapport building, strengths perspective, goal setting, taught coping skills Client Response:: Client reported she did follow through with homework of practicing healthy coping skills like breathing and grounding to allow herself to calm down and relax. Client stated she booked her self-massage over the last week and was able to enjoy the massage. Client stated she does feel like her body is slipping back into some anxiety and depression since her son's back to living with them after his wrist injury. Client stated she feels the need to fix everything and results in her putting too much on her plate. Client stated the reason she wants to fix everything is because her son and her do not always get along and she just wants to resolve the conflict for them. Client reported she realizes she does not have the mental capacity to fix everybody else at this time. Client connected with psychoeducation about complex trauma. Client stated she often puts more on her own plate and puts everybody else first visits which she had to do when she was younger. Client able to connect how survival skills she uses a child have become patterns of life as an adult. Able to recognize how in childhood those skills worked as survival skills but now those same skills in adulthood result in her off to put herself last and not getting her needs met. During session client expressed feeling me anxious and worried she was going to vomit. Client receptive to taking a walk around the building and practice grounding tools with therapist. Following the walk and use of grounding tools client's anxiety had decreased and she was able to prevent herself from going into a panic attack and vomiting. Client reports agreeable to continue to practice anxiety reduction skills and allowing her body to relax since its been in survival mode for the last few years due to COVID. Risks/Concerns:: Denies suicidal ideation, plan, intention. Progress Toward Goals/Plan:: Progress noted with client following through with homework from last week of practicing her calming skills and allowing herself to relax. Client had increased anxiety during session when discussing complex trauma. Client agreed it would be beneficial following the IOP program to be referred to a EMDR therapist to work on her childhood trauma. Client responded well to utilizing grounding tools in the moment which helped prevent a panic attack in vomiting. Client is to continue IOP to decrease anxiety, increase healthy coping skills, and prevent decompensation.
--- NOTE | 2023-04-16 09:00 | BH.SGPN.GN ---
Behaviors/Verbalizations/Mental Status: [] Eye contact is good. Motor activity is appropriate. Appearance is casual. Speech is Appropriate. Mood is anxious. Affect is congruent. Thoughts are linear and logical. No evidence of psychosis. Reviewed daily check in sheet and no reports of suicidal ideations or intent. Client Response/Progress/Benefit: [] Pt participated at times during the group discussion. Attentive. Daily symptom tracker notes 25 for depression and /5 for anxiety. Emotion for today is calm. Mental health wins include not feeling guilty with herself for setting boundaries on herself. Shared that she was ill over the weekend and allowed herself to rest and not follow through with tasks or responsibilities that would have been overwhelming. Shared how this had been a challenge for her in the past due to feelings of guilt and urge to people-please. She also gave herself permission to practice self-care. Reports progress in reframing and challenging her thoughts, self-care, and utilizing skills. The more I learn the easier it is to manage. Benefited from group support, encouragement, and feedback. Will continue in IOP to prevent decompensation, stabilize mood, and improve functioning to return to work. Narrative Note: []
--- NOTE | 2023-04-16 10:12 | BH.SGPN.GN ---
Behaviors/Verbalizations/Mental Status: []Pt alert and oriented, appropriate grooming/appearance. Eye contact good. Motor activity appropriate. Speech within normal limits. Affect congruent, mood anxious and euthymic. Thoughts linear, logical, no signs of hallucinations or delusions. Client Response/Progress/Benefit: []Pt was an active participant in group discussions. Attentive during psychoeducation. Contributed during interactive discussions in which peers attempted to define crisis. Pt identified several examples of potential crisis. Group also worked together to identify unhealthy responses to crisis which included; isolation, self-harm, substance abuse, avoidance, and lashing out. Pt identified personal warning signs as lack of concentration, isolating/avoiding others, and staying in bed too long. Benefited from increased understanding of crisis and awareness of personal responses to crisis. Pt will continue IOP tx to prevent decompensation and continue to promote healthy skill application, and thought challenging. Narrative Note: []
--- NOTE | 2023-04-16 11:12 | BH.SGPN.GN ---
Behaviors/Verbalizations/Mental Status: []Pt alert and oriented, neatly dressed and groomed. Eye contact good. Motor activity appropriate. Speech within normal limits. Affect congruent, mood euthymic. Thoughts linear, logical, no signs of hallucinations or delusions. Client Response/Progress/Benefit: []Pt engaged throughout group session AEB providing contributions to discussion and working within the small group. Pt identified their personal warning signs for crisis and gained further awareness of earliest warning signs. Pt created a crisis action plan to help Pt better manage personal crisis warning signs. Pt shared an action plan for their warning sign of isolation/avoiding others which include: opposite action, making plans to leave the house after work, develop a nightly routine, and communicating with her support person. Pt appeared to benefit from creating a crisis action plan and increasing self-awareness. Pt to continue IOP tx to combat distorted thoughts, improve emotional regulation skills, and increase self-care. ?? Narrative Note: []
--- NOTE | 2023-04-17 10:15 | BH.SGPN.GN ---
Behaviors/Verbalizations/Mental Status: []Pt alert and oriented, neatly dressed and groomed. Eye contact good. Motor activity appropriate. Speech within normal limits. Affect congruent, mood anxious. Thoughts linear, logical, no signs of hallucinations or delusions. Client Response/Progress/Benefit: []Pt was an active participant during interactive group discussions. Attentive during psychoeducation on the six types of boundaries. Pt along with peers contributed to interactive discussion on defining what a boundary is and group identified challenges to setting boundaries. Pt discussed personal barriers of fear of hurting others, feeling like she does not deserve to love herself, and the effects of childhood trauma. Group reviewed the 6 types of boundaries. Pt gave example of what it could look like to violate someone?s sexual boundaries which was ?using manipulation.? benefited from increased awareness and insight on the importance/benefit to setting health boundaries. Will continue IOP tx to improve mood stability, reduce negative thinking patterns, and improve daily functioning. Narrative Note: []
--- NOTE | 2023-04-17 11:20 | BH.SGPN.GN ---
Behaviors/Verbalizations/Mental Status: []Pt alert and oriented, casually dressed and groomed. Eye contact good. Motor activity appropriate. Speech within normal limits. Affect congruent, mood euthymic. Thoughts linear, logical, no signs of hallucinations or delusions. Client Response/Progress/Benefit: []Pt responded well to session AEB listening attentively to peers and providing input. Pt attentive during psychoeducation on the different boundary styles. Pt reported she often is porous with her physical and sexual boundaries. Stated she is rigid with her emotional and time boundaries. Identified having healthy boundaries for intellectual and material. Pt was given a handout on strategies for healthy boundary setting. Appeared to benefit from increasing insight to boundary setting and the impacts on mental health. Seemed to benefit from increased awareness of boundary styles and strategies to improve setting boundaries. Will continue IOP tx to decrease anxiety, challenge distortions, and prevent decompensation.
--- NOTE | 2023-04-17 14:49 | BH.MDN_ITS ---
Multi-Disciplinary Note - Note 60-min Individual Time Started:: 09:00 Date: 04/17/23 Purpose of session/treatment goals addressed:: Purpose session was to address goals 1 and 2 from [facility]. Eye Contact:: Good Motor Activity:: Appropriate Appearance:: Casual Speech:: Appropriate Mood:: Anxious Affect:: Congruent Thoughts:: Linear, Logical, No evidence of hallucinations/delusions noted Staff Interventions:: thought challenging, CBT techniques, mindfulness skills, rapport building, strengths perspective, goal setting, other - Pros cons list Client Response:: Client stated on a positive note she has not puked in 6 days. Client reported this has been the longest she has not puked in 6 weeks. Client reported she does believe it has been helpful to consistently practice her calming skills and not having to be in the work environment. Responded well to discussion about importance of boundary setting in order for client to be able to get her needs met and not overextend herself. Client starting to realize by overdosing herself she says herself up for failure because she no longer has the capacity to just do more. Client worked with therapist to create a list of task and responsibilities that she really enjoys while at work and then created a list of things that are bothersome and not enjoyable. Client agreeable for homework to create list of what would be most be helpful for her when she returns back to work. Reviewed homework from last session in which client was identifying her accomplishments and started to practice identify negative thoughts and challenging them. Risks/Concerns:: Denies suicidal ideation, plan, and intention. Progress Toward Goals/Plan:: Progress noted with client reporting no panic attacks with puking in 6 days which she stated is the longest she has gone in the last 6 weeks. Client reports practicing breathing and grounding tools to help relax her body. Client continues to report anxiety when he thinks about returning back to work and ongoing stress at her house. Client to continue IOP to continue to decrease anxious symptoms, challenge distortions, and prevent decompensation. Time Stopped:: 10:00
--- NOTE | 2023-04-19 09:00 | BH.SGPN.GN ---
Behaviors/Verbalizations/Mental Status: [] Eye contact is good. Motor activity is appropriate. Appearance is casual. Speech is Appropriate. Mood is anxious. Affect is congruent. Thoughts are linear and logical. No evidence of psychosis. Reviewed daily check in sheet and no reports of suicidal ideations or intent Client Response/Progress/Benefit: [] Pt participated at times during the group discussion. Attention. Emotion for today is anxious. Daily symptom tracker notes 3/5 for anxiety and 2/5 for depression. She shared with the group several mental health wins. Reports feeling motivated and accomplished which she has not felt in months. She has a concert schedule this week with a friend and is very anxious. Group normalized her anxiety at social events with numerous people and provided feedback and support which was beneficial. She is anxious that she will have extreme anxiety, panic attacks, and a relapse of her vomiting due to anxiety in public place. As she was vomiting multiple times while at work due to anxiety this has lead to an overall fear of social events which has increased anxiety. Progress noted as she reports improved mood and decreased anxiety. Will continue in IOP to prevent decompensation, increase healthy coping skills, and improve functioning to return to work. Narrative Note: []
--- NOTE | 2023-04-19 10:15 | BH.SGPN.GN ---
Behaviors/Verbalizations/Mental Status: []Eye contact is good. Motor activity is appropriate. Appearance is casual. Speech is Appropriate. Mood is stressed Affect is congruent. Thoughts are linear and logical. No evidence of psychosis. Client Response/Progress/Benefit: [] Pt was an active participant in group discussions. Attentive during psychoeducation on the 4 communication styles and the obstacles to effective communication. Contributed during interactive discussion on the benefits of communicating effectively which included; having one's needs met, helping others get their needs met, and building connection with others. Worked well in small group in which pt and peers identified the benefits and disadvantages to the different communication styles. Pt reports belief they use more passive communication now, but in the past they were more assertive. Benefited from increased understanding of communication styles and how these can impact effective communication. Will continue in IOP to promote mood stability, increase self-confidence, and further reduce anxiety. Narrative Note: []
--- NOTE | 2023-04-19 11:15 | BH.SGPN.GN ---
Behaviors/Verbalizations/Mental Status: []Client alert and oriented, casually dressed and groomed. Eye contact good. Motor activity appropriate. Speech within normal limits. Affect congruent, mood euthymic. Thoughts linear, logical, no signs of hallucinations or delusions Client Response/Progress/Benefit: []Client responded well to session AEB client listening attentively to others and providing input during group discussion. Client did well in the activity to be assertive and ask for feedback. Recognizes if group wasn't assertive in activity, they wouldn't have been successful. Discussed with group communication strategies used to make activity successful. Attentive during psychoeducation on interpersonal DBT skill ESTELLE. Identified wanting to use more assertive communication in her relationship to begin working towards increased ability to be assertive in other areas of her life. Client seemed to benefit from increasing awareness of healthy strategies to improve communication. Will continue IOP tx to improve daily functioning, increase healthy communication, and prevent decompensation. Narrative Note: []
--- NOTE | 2023-04-25 11:51 | PCM.BH.PN_ITS ---
Progress Note Progress Note: History of Present Illness/Interim History: The patient is a 47-year-old female with a history of depression, anxiety and PTSD who is seen in follow-up at the [facility] behavioral health IOP unit. 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 I last saw the patient 3 weeks ago and at that time doxepin was added to help with her decreased sleep. The patient states that the doxepin is greatly improved her sleep and she is sleeping about 7 hours a night now with the doxepin. The patient states that her mood has improved and is much less depressed and feels more stable. She has had less panic attacks and much less vomiting. She has had only 2-3 panic attacks in the past 10 days and she has only vomited 1 time in the past 10 days. The patient states that his has become easier to leave the house and she was even able to go to a concert up in [place] and enjoyed the concert despite having a panic attack while she was there. She denies passive thoughts of , suicidal ideation, homicidal ideation, plan for suicide, hallucinations, delusions. The patient has not noticed in the past day or so lesions in her left forehead near her hairline and on her scalp adjacent to it that have been very painful. These lesions have ulcerated today and are oozing and she feels it is consistent with shingles. She has an appointment to see her primary care doctor when she leaves here to get this evaluated. Current Psychiatric Medications: [] Wellbutrin XL 150 mg p.o. every morning (times several years); Paxil 30 mg p.o. daily (dose increased 4 and half weeks ago); Ativan 0.5 mg only taking it once a day now. Zofran as needed for nausea. Mental Status Examination: [] The patient is a 47-year-old female who appears normal for stated age and is casually dressed and groomed with good hygiene. She has a small vesicular red lesions on her anterior left forehead near her hairline. She has no psychomotor agitation or retardation and is ambulatory with a normal gait. She is cooperative and pleasant during the interview. Eye contact is good and speech is normal rate and rhythm and fluent with no pressure. Mood is depressed. Affect is mildly constricted. Thought process is goal-directed and organized. Thought content: There is no evidence of passive thoughts of , plan for suicide, suicidal ideation, homicidal ideation, hallucinations or delusions. The patient is hopeful that she is gaining insight into her issues. Reality testing is intact. Intelligence is above average. Judgment is intact. Insight is good. Impulsivity is low. Diagnoses: [] 1. Major depressive disorder, recurrent, severe without psychosis 2. Panic disorder 3. PTSD 4. Generalized anxiety disorder 5. Primary support and work issues Plan: [] The patient will continue the IOP program at [facility] as the structure, support, education and group therapy will hopefully prevent worsening of the patient's symptoms. She felt safe during the interview and if it anytime she does not feel safe she will let us know or go to the emergency room. The risks, options, and possible complications and side effects of the medications were again discussed with the patient and she understands and accepts these. No medication changes were made today except the patient agrees to increase her Paxil to 40 mg p.o. daily and prescription is sent in for this #30 with 1 refill. She will continue to follow-up with her outpatient providers and I will see the patient in follow-up in 2 weeks.
--- NOTE | 2023-04-25 14:13 | BH.TPR ---
Treatment Plan Review Demographics Date of Admission:: 04/02/23
--- NOTE | 2023-04-27 09:00 | BH.SGPN.GN ---
Behaviors/Verbalizations/Mental Status: [] Eye contact is good. Motor activity is appropriate. Appearance is casual. Speech is Appropriate. Mood is euthymic. Affect is congruent. Thoughts are linear and logical. No evidence of psychosis. Reviewed daily check in sheet and no reports of suicidal ideations or intent. Client Response/Progress/Benefit: [] Pt participated at times during the group discussion. Attentive. Client reported last week she faced her anxiety by going to a concert with her sister despite feeling anxious about going. Client stated she was able to make it through several songs before she gets significantly anxious and got sick. Client reported she initially was beating herself up over the weekend because she felt like she was making progress but with some help from therapist she was able to reframe that experience. Client noted her additional mental health when was coming back to IOP and working with therapist to challenge her thoughts. Client noted her current stressor is skin infection which she thinks is being caused by all the stress she has been lately. Benefited from group support, encouragement, and feedback. Will continue in IOP to prevent decompensation, decrease anxiety, and continue use of healthy skills.
--- NOTE | 2023-04-27 10:10 | BH.SGPN.GN ---
Behaviors/Verbalizations/Mental Status: []Eye contact is good. Alert and oriented. Motor activity is appropriate. Appearance is casual. grooming is appropriate. Speech is Appropriate. Mood is euthymic. Affect is congruent. Thoughts are linear and logical. No evidence of psychosis or hallucinations. Client Response/Progress/Benefit: []Client an active participate AEB providing contributions, listening attentively to others, and taking notes throughout. The group identified the impact of emotions on communication such as change in tone, body language, shutting down, misperceiving the communication, and reassurance seeking. Client shared struggling with inaccurately recalling or perceiving information when experiencing increased anxiety. During group activity, client did well to challenge herself to participate and reflected on feeling anxious when trying to communicate instructions to fellow participants in order to accomplish the group goal. Client benefited from session by gaining an increased understanding on the importance of managing emotions to improve daily functioning. Client will continue IOP to further improve mood stability, improve use of skills for better symptom management, and prevent decompensation. Narrative Note: []
--- NOTE | 2023-04-27 11:10 | BH.SGPN.GN ---
Behaviors/Verbalizations/Mental Status: []Pt alert and oriented, neatly dressed and groomed. Eye contact good. Motor activity appropriate. Speech within normal limits. Affect congruent, mood euthymic. Thoughts linear, logical, no signs of hallucinations or delusions. Client Response/Progress/Benefit: [] Pt engaged in session AEB Pt listening attentively to peers and providing input. Attentive during psychoeducation on 4 zones of regulation. Pt able to identify feelings and behaviors for each zone. Pt identified coping skills one can use to support self in each zone. Pt reports belief they are in the ?yellow? zone today and pt wants to focus on practicing self-care and journaling to help pt in this zone. Benefited from increased education on zones of regulation or stages of alertness for emotions and healthy coping skills to use for each zone. Will continue IOP tx to continue use of healthy coping, challenge distortions, and promote mood stability. Narrative Note: []
== END 2023-04-27 23:59 ==
LOC: BHIOP 08:00
PROVIDERS: PCP Family Medicine; Referring Provider Psychiatry & Neurology Psychiatry; Visit Provider Psychiatry & Neurology Psychiatry
DX: F33.2 Major depressive disorder, recurrent severe without psychotic features (principal); F41.0 Panic disorder [episodic paroxysmal anxiety]; F43.10 Post-traumatic stress disorder, unspecified; F41.1 Generalized anxiety disorder
CPT/HCPCS: S9480; 90837; 90853

== ENCOUNTER 2023-04-30 07:16 | Outpatient (RCR) | payer OTHER, SELFPAY ==
[2023-04-28 01:39] VITALS: BP 141/91; PULSE 84
--- NOTE | 2023-04-30 09:00 | BH.SGPN.GN ---
Behaviors/Verbalizations/Mental Status: [] Eye contact is good. Motor activity is appropriate. Appearance is casual. Speech is Appropriate. Mood is anxious. Affect is congruent. Thoughts are linear and logical. No evidence of psychosis. Reviewed daily check in sheet and no reports of suicidal ideations or intent. Client Response/Progress/Benefit: [] Pt was an active participant in group discussion. Attentive. Daily symptom tracker notes 12/03 for anxiety. Pt shared several mental health wins. Utilizing coping skills, communication skills, and setting boundaries to decreased her anxiety/stress. Her mother is in town this week which is a significant psychosocial stressors and trigger. Has not seen her mother in 3 years. Prior to her mother visiting pt developed a anxiety mgmt. plan and also set boundaries. She also continues to work on opposite-action and addressing anxiety producing events rather than avoiding. I haven't cancelled any events. In the past anxiety would cause her to cancel social/family events. This has increased her confidence in her ability to manage her panic attacks, anxiety, and unrealistic expectations of herself. Progress noted per pt report as she is utilizing skills more consistently. This past and upcoming week however is very stressful with potential to lead to decompensation. Benefited from group support, encouragement, and feedback. Will continue in IOP to prevent decompensation, stabilize mood, decreased panic attacks, and improve functioning to return to work. Narrative Note: []
--- NOTE | 2023-04-30 10:10 | BH.SGPN.GN ---
ions/Mental Status: [] Eye contact is good. Motor activity is appropriate. Appearance is casual. Speech is Appropriate. Mood is anxious. Affect is congruent. Thoughts are linear and logical. No evidence of psychosis. Client Response/Progress/Benefit: [] Pt active participant AEB providing contributions throughout discussions and listened attentively to others. Participated in and was engaged during experiential activity. Engaged during interactive discussion on what failure means to the group in which peers identified that failure is ... not meeting expectations, not having a desired outcome, and not succeeding in a task. Group was able to identify how fear of failure can lead to inaction, complacency, pushing people away, poor self-care, and self-sabotage. Stated sometimes she feels like every decision is wrong which leads her to people please by doing what others want. Attentive during interactive discussion on the role that FOF plays in mental wellness, depression, anxiety, and growth. Able to connect the experiential activity to FOF. Benefited from increased awareness of how the role that FOF plays in mental health and decision-making. Will continue in IOP to increase healthy coping skills, decrase anxiety and avoidance behavior, and prevent decompensation.
--- NOTE | 2023-04-30 11:15 | BH.SGPN.GN ---
Behaviors/Verbalizations/Mental Status: []Pt alert and oriented, neatly dressed and groomed. Eye contact good. Motor activity appropriate. Speech within normal limits. Affect congruent, mood anxious. Thoughts linear, logical, no signs of hallucinations or delusions. Client Response/Progress/Benefit: [] Pt responded well to session, engaged in the experiential activity and attentive throughout group processing. Pt reported fear of failure has kept Pt from happiness, job opportunities, completing her masters, being a better mom, and finding hobbies. ?Pt completed fear of failure worksheet and was able to identify thoughts and behaviors that reinforce personal fear of failure including all or nothing thinking, people pleasing, and comparing herself to others. Pt participated in group discussion regarding strategies to overcome fear of failure. Identified wanting to work on using singh mind by looking at her emotions with a logic lens. Appeared to benefit from increased knowledge of strategies to combat fear of failure and gaining self-awareness. Pt will continue IOP tx to promote mood stability, combat distorted thoughts, and reduce avoidance by increasing distress tolerance skills. ??? Narrative Note: []
--- NOTE | 2023-05-04 09:00 | BH.SGPN.GN ---
Behaviors/Verbalizations/Mental Status: [] Eye contact is good. Motor activity is appropriate. Appearance is casual. Speech is Appropriate. Mood is anxious. Affect is congruent. Thoughts are linear and logical. No evidence of psychosis. Reviewed daily check in sheet and no reports of suicidal ideations or intent.Tearful at times. Client Response/Progress/Benefit: [] Pt was an active participant in group discussion. Attentive. Daily symptom tracker notes / for anxiety and irritability. Pt shared with the group that she has experiences increased anxiety and stress this week in relation to her mother visiting. Conflicted relationship with her mother whom she has not seen in 3 years. Pt shared several events in which her mother's actions impacted pt stress and mental health which led to regression such as panic attacks and psychosomatic symptoms (vomiting due to anxiety). There was so much drama. Clearly this has impacted her mental health however pt reports that she has used this week to work on her skills using the events as a learning experience. Able to identify areas in which she was able to use skills to manage stress which increased her confidence. She was also able to practice boundary setting. Despite increase in symptoms progress noted as pt experienced several overwhelming events and reported minimal panic and psychosomatic events. Benefited from group support, encouragement, and feedback. Will continue in IOP to prevent decompensation, stabilize mood, and improve functioning to return to work. Narrative Note: []
--- NOTE | 2023-05-04 10:10 | BH.SGPN.GN ---
Behaviors/Verbalizations/Mental Status: []Client alert and oriented, casually dressed and groomed. Eye contact good. Motor activity appropriate. Speech within normal limits. Affect congruent, mood anxious, euthymic. Thoughts linear, logical, no signs of hallucinations or delusions. Client Response/Progress/Benefit: []Client receptive to session AEB providing input throughout, listening attentively to others, and taking notes. Attentive throughout psychoeducation on the cognitive triangle and maintenance cycles. Engaged in group discussion reviewing the impact of daily activities and behaviors in either reinforcing unhealthy maintenance cycles and depression or assisting in reducing symptoms (?down? vs ?up? activities). Client identified common ?down? activities they engage in as: staying in bed, binge watching tv, doom scrolling, isolation, and avoidance. Common ?Up? activities client identified included: getting outside, yoga, reaching out to sister, therapy, and listening to music. Appeared to benefit from increased awareness of current behaviors and impact these have on mental health. Recommended to continue IOP tx to continue use of skills, work on fear ladder, and prevent decompensation.
--- NOTE | 2023-05-04 11:15 | BH.SGPN.GN ---
Behaviors/Verbalizations/Mental Status: []Pt alert and oriented, neatly dressed and groomed. Eye contact good. Motor activity appropriate. Speech within normal limits. Affect congruent, mood euthymic. Thoughts linear, logical, no signs of hallucinations or delusions. Client Response/Progress/Benefit: []Pt responded well to session, attentive and engaged in activity. Group shared having patience and being willing to re-evaluate helped the group be success. Group discussed values and the benefits that knowing one's values can have on one's mental health. These included: increasing motivation, resolved cognitive dissonance, and less stress. Pt explored own values and identified friends/social relationships and mental health as their top two values. Pt set a goal to make plans with one friend this week and journal 5/7 nights this week to live according to values. Pt appeared to benefit from exploring values and creating a weekly goal. Pt will continue IOP tx to promote mood stability, reduce negative thinking patterns, and promote work-related functioning. Narrative Note: []
--- NOTE | 2023-05-10 09:05 | BH.SGPN.GN ---
Behaviors/Verbalizations/Mental Status: [] Eye contact is good. Motor activity is appropriate. Appearance is casual. Speech is Appropriate. Mood is anxious. Affect is congruent. Thoughts are linear and logical. No evidence of psychosis. Reviewed daily check in sheet and no reports of suicidal ideations or intent. Client Response/Progress/Benefit: [] Pt was an active participant in the group discussion. Attentive. Daily symptom tracker notes 25 for anxiety and /5 for depression. Emotion for today is determined. Pt shared that she made it through a series of significantly stressful and anxiety-producing events last week. Elaborated on the events and how they impacted her and left her exhausted. Appears that her anxiety and stress were elevated which led to being exhausted. Used the stressful events to practice skills, set boundaries, and learn. Increased confidence her skills as she did not get sick for the last several days despite the increased emotions. Another upcoming stressor as she plans to return to work next week. Elaborated that she has written down her boundaries and plans to meet with her supervisor seaming this week to discuss. I can no longer work 70 hour weeks. Progress noted per pt report as she reports utilizing skills, decreased psychosomatic symptoms, decreased panic attacks, and increased confidence. Benefited from group support, encouragement, and feedback. Will continue in IOP to prevent decompensation, stabilize anxiety, and improve functioning to return to work. Narrative Note: []
--- NOTE | 2023-05-10 10:10 | BH.SGPN.GN ---
Behaviors/Verbalizations/Mental Status: []Pt alert and oriented, neatly dressed and groomed. Eye contact good. Motor activity appropriate. Speech within normal limits. Affect congruent, mood euthymic. Thoughts linear, logical, no signs of hallucinations or delusions. Client Response/Progress/Benefit: []Pt was an active participant in group discussions and activity. Attentive during psychoeducation. Pt along with peers were able to identify several negatives on the picture given to the group. Pt and peers also identified positives in the picture and made the connection that finding positives is much more difficult. Interactive discussion on the definition of perspective, how perspective is formed, and why perspective is important in treatment. Pt along with peers also identified that perspective can either motivate and encourage treatment or be a barrier to receiving help. Pt shared today her perspective is more positive and hopeful. Pt stated making sure she maintains self-care and giving herself credit has helped pt develop a more positive perspective. Pt reflected that being more hopeful has helped pt be proud of herself and feel less anxious. Will continue in IOP to stabilize moods, increase consistent use of healthy coping, and help pt return to work. Narrative Note: []
--- NOTE | 2023-05-10 11:10 | BH.SGPN.GN ---
Behaviors/Verbalizations/Mental Status: []Pt alert and oriented, neatly dressed and groomed. Eye contact good. Motor activity appropriate. Speech within normal limits. Affect congruent, mood euthymic. Thoughts linear, logical, no signs of hallucinations or delusions. Client Response/Progress/Benefit: []Pt was attentive and contributed to small group discussion. Pt completed strengths exploration worksheet, identifying empathy, open-mindedness, and common sense as personal strengths. Pt able to acknowledge how these strengths are helping pt and can continue to help pt in mental health journey. Pt worked with group to identify strategies that can help increase utilization of personal strengths and how to challenge one?s perspective in general. Pt identified wanting to work on grounding skills to help challenge perspective. Benefited from identifying personal strengths and strategies for enhancing use of identified strengths. Pt to continue IOP tx to promote work-related functioning and increase self-confidence. Narrative Note: []
--- NOTE | 2023-05-14 09:00 | BH.SGPN.GN ---
Behaviors/Verbalizations/Mental Status: [] Eye contact is good. Motor activity is appropriate. Appearance is casual. Speech is Appropriate. Mood is anxious. Affect is congruent. Thoughts are linear and logical. No evidence of psychosis. Reviewed daily check in sheet and no reports of suicidal ideations or intent. Client Response/Progress/Benefit: [] Pt was an active participant in group discussion. Attentive. Daily symptom tracker notes 11/02 for anxiety, depression, and irritability. Shared with the group significant stressors that she was able to work through over the weekend w/o panic attack or psychosomatic symptoms (vomiting). I didn't spiral. Progress noted as she is reframing thoughts, challenging thoughts, incorporating affirmation, has insight into cognitive distortions, and is utilizing calming skills (breathing). 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 Utilized assertive communication and set boundaries to ensure that she does not decompensate once she returns to work stressors. Progress noted per pt report. Benefited from group support, encouragement, and feedback. Will continue in IOP to prevent decompensation, stabilize anxiety, and improve functioning to return to work. Narrative Note: []
--- NOTE | 2023-05-14 10:15 | BH.SGPN.GN ---
Behaviors/Verbalizations/Mental Status: []Pt alert and oriented, casually dressed and groomed. Eye contact good. Motor activity appropriate. Speech within normal limits. Affect congruent, mood euthymic. Thoughts linear, logical, no signs of hallucinations or delusions. Client Response/Progress/Benefit: []Pt responded well to session, attentive and providing to discussion. Pt connected with the quote and discussion reviewing the functions of various emotions. Attentive throughout psychoeducation on the functional role and benefits of guilt, as well as differences between appropriate and inappropriate guilt. Group discussed the harmful impacts of unmanaged guilt which included poor boundaries, feeling inadequate, and creating an unhealthy maintenance cycle. Pt participated in group activity highlighting the impacts of inappropriate guilt in team collaboration or reaching a goal. Pt then completed a self-reflection activity in which they identified their own experiences with inappropriate guilt and impacts on pt?s mental health. Shared struggling with inappropriate guilt when taking time off work for her own mental health needs or when setting a boundary with someone. Pt appeared to benefit from learning about the different types of guilt and how unmanaged guilt can impact mental health. Pt will continue IOP tx to maintain mood stability and continue to improve daily functioning as pt transitions back to full-time employment. Narrative Note: []
--- NOTE | 2023-05-14 11:15 | BH.SGPN.GN ---
Behaviors/Verbalizations/Mental Status: []Pt alert and oriented, neatly dressed and groomed. Eye contact good. Motor activity appropriate. Speech within normal limits. Affect congruent, mood slightly anxious. Thoughts linear, logical, no signs of hallucinations or delusions. Client Response/Progress/Benefit: [] Pt engaged participant AEB listening attentively to others and providing input throughout group. During challenge activity pt worked cooperatively with small group. Pt made connection that it takes patience and problem solving to work through appropriate and inappropriate guilt. Pt worked with their small group to identify strategies to manage unhealthy guilt. Pt stated she often feels inappropriate guilt when she takes time for herself or sets boundaries. Pt selected wanting to work on sticking to the boundaries she has set to challenge inappropriate guilt. Pt seemed to benefit from learning about strategies to manage appropriate and inappropriate guilt. Pt to continue IOP to increase self-compassion, combat distortions, and improve work-related functioning. Narrative Note: []
--- NOTE | 2023-05-14 16:32 | BH.MDN ---
Multi-Disciplinary Note Note 60-min Individual: Time Started:: 12:05 Date: 05/14/23 Purpose of session/treatment goals addressed:: Purpose of session was to address goals 1 and 2 from MTP. Eye Contact:: Good Motor Activity:: Appropriate Appearance:: Casual Speech:: Appropriate Mood:: Euthymic and Other (tearful at times) Affect:: Full and Congruent Thoughts:: Linear, Logical and No evidence of hallucinations/delusions noted Staff Interventions:: thought challenging, CBT techniques, mindfulness skills, discharge planning, strengths perspective, goal setting and other (return to work plan) Client Response:: Client responded well to session AEB openly sharing thoughts and feelings. Client reported she is feeling more confident with her return to work after being able to get through tough moments in the last two weeks. Client stated she was able to maintain her boundary with her mom for the last couple days mom was around. Client reported she is happy she stuck to her boundary and didn't give in to her desire to people please. Client stated she will need to continue to process how much she wants to allow her mom to be in her life moving forward. Client reported last week she also noticed her progress when faced with stressor of finding her car was towed. Client stated if that would have happened to her several weeks ago she would have responded in a much different way. 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 Client stated meeting went very well and she was able to communicate her needs moving forward. Client reported working on fear ladder over the weekend by driving to work and going inside. Client stated she was very anxious on the drive to work, but once inside she didn't have any feelings of needing to throw up and could manage her anxiety. Risks/Concerns:: Denies suicidal ideation, plan, or intention to date. Progress Toward Goals/Plan:: Progress noted with pt being able to manage multiple stressors over the weekend without experiencing a panic attack and managing other emotions. Pt able to set boundaries with her mother and follow through with those boundaries. Pt states feeling more emotionally stable and able to return to work this week. Pt is to start back to work this week at two days this week and next week. Pt expressed interest in doing the aftercare program at [facility]. She thinks it will help her with maintenance of skills and progress. Pt also will reach out again to potential outpatient therapist to get an appointment scheduled. Time Stopped:: 13:00
--- NOTE | 2023-05-15 09:00 | BH.SGPN.GN ---
Behaviors/Verbalizations/Mental Status: [] Eye contact is good. Motor activity is appropriate. Appearance is casual. Speech is Appropriate. Mood is anxious. Affect is congruent. Thoughts are linear and logical. No evidence of psychosis. Reviewed daily check in sheet and no reports of suicidal ideations or intent. Client Response/Progress/Benefit: [] Pt was an active participant in group discussions. Attentive. Daily symptom tracker notes 11/02 for anxiety and irritability. Emotion for today is hopeful. Pt is set to return to work tomorrow and reports being nervously excited stating I'm more excited to see how I do. 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 This resulted in an influx of work related emails which was overwhelming at first. Able to identify that she was catastrophizing due to emials and utilized skills. Able to calm herself. 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 working on myself while in the program has been one of the hardest things I've ever done. Group provided support and encouragement which was beneficial. Progress noted per pt report. Will continue in IOP to maintain gains and prevent decompensation as she transitions back to work. Narrative Note: []
--- NOTE | 2023-05-15 10:10 | BH.SGPN.GN ---
Behaviors/Verbalizations/Mental Status: []Eye contact is good. Motor activity is appropriate. Appearance is casual. Speech is Appropriate. Mood is euthymic. Affect is full. Thoughts are linear and logical. No evidence of psychosis. Client Response/Progress/Benefit: []Pt was an active participant in group discussions. Engaged and provided feedback along with peers on defining anxiety. Along with peers, pt worked to identify the benefits of anxiety. Participated during interactive discussion on how anxiety impacts one physically, cognitively, and behaviorally. Completed worksheet on how anxiety impacts pt physically, cognitively, and behaviorally. Pt shared physically pt experiences skin picking, sweating, and IBS. Benefited from increased insight into anxiety's benefits and how diagnosable anxiety impacts functioning. Will continue in IOP tx to promote work-related functioning and further increase mood stability. Narrative Note: []
--- NOTE | 2023-05-15 11:10 | BH.SGPN.GN ---
Behaviors/Verbalizations/Mental Status: []Pt alert and oriented, casually dressed and groomed. Eye contact good. Motor activity appropriate. Speech within normal limits. Affect congruent, mood euthymic. Thoughts linear, logical, no signs of hallucinations or delusions. Client Response/Progress/Benefit: []Pt was an active participant in group discussion AEB providing contributions throughout group and listening attentively to others. Attentive during psychoeducation on mindfulness and ways to utilize mindfulness techniques to improve anxiety management. The group practiced deep breathing and the 5-senses during session. Engaged and attentive during group brainstorm of healthy anxiety reduction skills including thought challenging and behavioral changes. Appeared to benefit from practicing in the moment coping skills and increasing repertoire of anxiety management skills. Pt selected wanting to work on tracking her anxious symptoms to increase awareness of progress and help identify what skills help the most.Pt will continue IOP tx to help with transition back to work, continue use of healthy coping, and prevent decompensation.
--- NOTE | 2023-05-17 09:02 | BH.SGPN.GN ---
Behaviors/Verbalizations/Mental Status: []Pt alert and oriented, casually dressed and groomed. Eye contact fair to good. Motor activity appropriate. Speech within normal limits. Affect congruent, mood anxious and euthymic. Thoughts linear, logical, no signs of hallucinations or delusions. Reviewed pt?s symptom tracker, no reported suicidal ideation, denies plan, or active intent as of 05/17/23. Client Response/Progress/Benefit: []Pt responded well to session, open to process with group and engaged. Pt reports feeling content this morning. Identified current mental health wins as using several grounding skills to successfully return to work. Shared feeling exhausted but proud of this accomplishment. Additional win noted as spending time engaging in self-care by going swimming at a friend?s rather than coming home and sleeping as she would have in the past. Current stressor noted as continuing to manage her mental health as she transitions back to full-time employment. Pt receptive of and appeared to benefit from supportive feedback of the group, as well as reflecting on mental health wins. Pt will continue IOP tx to promote mood stability, reduce thought distortions, and continue to improve functioning as pt transitions back to work. Narrative Note: []
--- NOTE | 2023-05-17 10:10 | BH.SGPN.GN ---
Behaviors/Verbalizations/Mental Status: [] Eye contact is good. Motor activity is appropriate. Appearance is casual. Speech is Appropriate. Mood is anxious. Affect is congruent. Thoughts are linear and logical. No evidence of psychosis. Client Response/Progress/Benefit: [] Pt was an active participant in group discussion. Attentive during psychoeducation and participated during interactive discussion in which members identified characteristics of individuals with a Fixed Mindset. Characteristics included; avoids challenges, fear of failure, defensive, avoids criticisms, give up easily, and fear of trying new things. Participated and engaged in experiential group activity in which therapist assigned a task to the group that seemed impossible causing fixed mindset responses. Through group interactions and therapist assistance pt was able to determine task was possible. Able to see connection between activity and Fixed vs Growth mindset. Benefited from increased awareness of fixed mindset and how this can impact mental health. Will continue in IOP to prevent decompensation, increase healthy skills, and improve functioning to return to work. Narrative Note: []
--- NOTE | 2023-05-17 11:10 | BH.SGPN.GN ---
Behaviors/Verbalizations/Mental Status: []Pt alert and oriented, casually dressed and groomed. Eye contact good. Motor activity appropriate. Speech within normal limits. Affect congruent, mood euthymic. Thoughts linear, logical, no signs of hallucinations or delusions. Client Response/Progress/Benefit: []Pt was an active participant during activity and discussion AEB providing some input, connecting with peers, as well as taking notes throughout. Pt did well to engage as group worked on identifying characteristics and benefits of adopting a growth mindset. Worked with fellow participants in reframing the example fixed thoughts into growth mindset thoughts. Worked with her small group to help reframe personal fixed thought of ?why do I exercise, I will always be heavy. It's who I am?. Benefitted from discussing benefits of growth mindset and brainstorming strategies for prompting growth-mindset. Pt appeared to benefit from working in small groups to challenge own thoughts and help peers. Pt will continue IOP tx to help with transition back to work, continue use of healthy coping skills, and prevent decompensation.
--- NOTE | 2023-05-21 09:00 | BH.SGPN.GN ---
Behaviors/Verbalizations/Mental Status: []Pt alert and oriented, casually dressed and groomed. Eye contact good. Motor activity WNL. Speech within normal limits. Affect congruent, mood euthymic. Thoughts linear, logical, no signs of hallucinations or delusions. Reviewed pt?s symptom tracker, no reported suicidal ideation, denies plan, or active intent. Client Response/Progress/Benefit: [] Pt responded well to session, open to contributing with group and engaged. Per symptom tracker pt reports a 1/5 for depression and 2 for anxiety. Client reported last week when she went to work for her second day back she did not expect it to be harder than the first day was. Patient stated she did get sick prior to leaving for work but able to see the stressor as a mental health when because she changed her closing continue get ready and showed up for her second day. Patient stated when she got to work and in the building she was able to manage her emotions and did well. Client reported additional mental positive as able to go to a wedding over the weekend despite feeling anxious she was able to communicate to her about how she has been feeling. Patient stated she took breaks while at the wedding but was able to enjoy herself and make it through which is something that she thought several weeks ago she would not be able to go to. Seemed to benefit from support from peers. Pt will continue IOP tx to transition back to work, continue use of healthy coping skills, and prevent decompensation.
--- NOTE | 2023-05-21 11:15 | BH.SGPN.GN ---
Behaviors/Verbalizations/Mental Status: []Pt alert and oriented, casually dressed, appropriately groomed. Eye contact good. Motor activity appropriate. Speech within normal limits. Affect congruent, mood euthymic. Thoughts linear, logical, no signs of hallucinations or delusions. Client Response/Progress/Benefit: []Pt was engaged during discussion and willing to complete the worksheet challenging them to develop a personal SMART goal. Pt chose the goal of making it to yoga class 3x over the next week. Pt stated this will benefit them by improving her mood, reduce stress, and feel physically healthier. Pt identified barriers which included being too tired, not enough time, anxiety. Identified for anxiety she will use positive self-talk, remind herself it?s a safe space, as well as practice consistent thought challenging. Pt receptive to identifying solutions for these barriers and willing to begin working on this goal. Benefited from this group by developing a short-term SMART goal related to mental health. Will continue IOP to continue to promote self-care, maintain mood stability, and prevent decompensation. Narrative Note: []
--- NOTE | 2023-05-21 14:14 | BH.MDN_ITS ---
Multi-Disciplinary Note Note 60-min Individual: Time Started:: 10:15 Date: 05/21/23 Purpose of session/treatment goals addressed:: Purpose of session was to address goals 1 and 2 from MTP. Eye Contact:: Good Motor Activity:: Appropriate Appearance:: Casual Speech:: Appropriate Mood:: Euthymic, Anxious and Other (Tearful at times) Affect:: Congruent Thoughts:: Linear, Logical and No evidence of hallucinations/delusions noted Staff Interventions:: thought challenging, CBT techniques, mindfulness skills, discharge planning, strengths perspective and other (Reviewed healthy coping skills) Client Response:: Client reported on Sunday she struggled with more anxiety than expected for her second day back to work. Client stated she believes she did not get up for work early enough and questioning herself as to why she was feeling so anxious. Client stated that she was going out to her car to drive to work she got sick and had to go back upstairs and change her clothes. Client reported she was able to get back in the car and go to work and then was no longer sick the rest of the day and less anxious when she got inside the building. Client reported she did find herself having to put herself back from negative thinking and overanalyzing situations while at work. Client stated she has noticed increased over analyzing of situations and wants to work on doing better with moving forward. Client stated she thinks getting up 2 hours before work will be better for her so she does not feel like she is rushing. However once challenged by therapist client realizes she does not think getting up 2 hours early will be helpful if she does not have a plan in place as to what she will do because likely she will just be anxious for 2 hours with no plan. Client reported she is going to reflect on what could be her morning routine that helps give her something to do and utilizes a skill like calming mindfulness or yoga or reading. Client stated she also needs to work on identifying a after work routine because in the years of COVID she would be so exhausted she just go home eat and out of bed. Client reported she realizes she is a find things that are enjoyable and get back to doing those things. Client stated in the past she used to either go to yoga class or had taken a class at the [employer] which were things that she look forward to doing. Client stated despite having a rough her day at work Sunday she was able to move on once she left work and did not let her anxiety from the day to go over the rest of her weekend. Client reported she was able to go to a wedding with over 100 people in the past she would have avoided this wedding. Client stated she was able to take breaks and enjoy the outside nature when she needed it. Client agreeable for homework to reflect on what her morning routine will look like when she has to go to work in the morning and what her evening routine will look like during the weekdays. 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 Client reported she realizes even though it is challenging to put into practice the skills and strategies she is learning through IOP she knows she needs to follow through because it will result in a healthier her. Risks/Concerns:: Denies suicidal ideation, plan, and intention. Progress Toward Goals/Plan:: Progress noted as client being able to make it through both of her work days last week. Client did get sick due to anxiety prior to her day of work on Sunday but was able to still go to work and make it through the entire day. Client has been doing well with applying skills like boundary setting, self-care, journaling, and challenge her negative thinking at work and at home. Client is struggling with over analyzing situations and is going to work on bring herself back to the here and now when she feels like she is getting stuck in the loop. Plan is for client to discharge from [facility] this week and will start aftercare at [facility] on May 31. Client is communicating with potential outpatient therapist to schedule their first session hopefully in the next couple weeks. Time Stopped:: 11:15
--- NOTE | 2023-05-22 09:00 | BH.SGPN.GN ---
Behaviors/Verbalizations/Mental Status: [] Pt alert and oriented, neatly dressed and groomed. Eye contact good. Motor activity appropriate. Speech within normal limits. Affect congruent, mood euthymic. Thoughts linear, logical, no signs of hallucinations or delusions. Reviewed pt?s symptom tracker, no risk for suicidal ideation, plan, or intent 05/22/23 Client Response/Progress/Benefit: []Pt responded well to session, attentive and providing feedback to others. Pt reports feeling thankful this morning. Pt shared she is getting to the end of IOP and pt feels that she has learned a lot of benefited significantly from taking time for her mental health. Pt shared she wants to continue making herself a priority when she discharges from IOP by continuing to practice self-care and thought challenging. Pt's mental health wins today include going for a walk this morning and sticking to her goal of doing yoga yesterday. Pt is stressed about her youngest son's mental health, but she is doing better with not internalizing his emotions. Pt appeared to benefit from reflecting on her mental health wins. Pt will continue IOP tx to promote mood stability, further increase self-confidence, and establish aftercare. Narrative Note: []
--- NOTE | 2023-05-22 11:10 | BH.SGPN.GN ---
Behaviors/Verbalizations/Mental Status: []Client alert and oriented, casually dressed and groomed. Eye contact good. Motor activity appropriate. Speech within normal limits. Affect congruent, mood euthymic. Thoughts linear, logical, no signs of hallucinations or delusions. Client Response/Progress/Benefit: []Pt was engaged throughout AEB contributing to group discussion and self-reflection. Group finished processing cues to anger worksheet. Pt identified personal anger cycle is being triggered by being lied to by her mom which results in pt thinking she makes me feel crazy, why do you hurt me? Pt stated emotional response is feeling confused, sad, and anxious which results in behavioral response of verbally lashing out, arguing, or leaving the situation. Pt contributed as group brainstormed healthy coping skills for better managing anger which included: music, walking/exercise, taking a break, grounding tools, reflection, and journaling. Pt worked in small groups to discuss how she could interrupt her anger cycle. Pt appeared to benefit from identifying different techniques to manage anger as well as gaining awareness of potential consequences of unmanaged anger. Will continue IOP tx to continue use of healthy coping, challenge negative thoughts, and prevent decompensation.
--- NOTE | 2023-05-22 11:10 | BH.SGPN.GN ---
Behaviors/Verbalizations/Mental Status: []Pt alert and oriented, casually dressed and groomed. Eye contact good. Motor activity appropriate. Speech within normal limits. Affect congruent, mood euthymic. Thoughts linear, logical, no signs of hallucinations or delusions. Client Response/Progress/Benefit: []Pt responded well to session AEB contributing to discussion, taking notes, and listening attentively to others. Group discussed the benefits of managed anger and anger as a secondary emotion. Pt shared perspective on personal benefits of anger as facilitating change. Pt completed worksheet on anger triggers and personal warning signs of anger. Pt identified their biggest triggers as being understaffed at work, witnessing others be disrespected, and people lying or cheating. Appeared to benefit from increased knowledge of the anger cycle as well as personal triggers. Pt to continue IOP to promote healthy coping skill application, maintain mood stability, and prevent decompensation. Narrative Note: []
--- NOTE | 2023-05-24 16:10 | BH.DS ---
Discharge Summary Demographics Date of Admission:: 04/02/23 Discharge Date: 05/25/23 Presenting Problems at Admission:: Pt's anxiety has been negatively impacting her ability to function at work due to severe anxiety when going into work which has resulted in pt vomiting when at work. Pt was getting sick throughout the day up to 10 times a day. Following her work day pt's depression would lead her to go home and lay in bed most of the evening. Isolated from friends and stopped engaging in activities she used to enjoy. Discharge Diagnoses:: 1. Major depressive disorder recurrent, severe without psychosis F33.2 2. Panic disorder 3. PTSD 4. Generalized anxiety disorder Reason for Discharge:: Pt has made significant treatment progress, has successfully reintegrated back into her workplace, and no longer meets criteria for IOP. Treatment Progress During Treatment & Response: Progress noted AEB by DSM 5 cross-cutting measures at discharge. Scores show a 86% decrease in depression, 92% decrease in anxiety, and an overall 90% decrease in overall symptoms. When pt first started the program she was throwing up due to anxiety up to 10 times a day. While in IOP with help of using skills she vomited from anxiety less than 5 total times. Pt has been able to get through her reduced work weeks last week and this week. Although there was some increase in her anxiety going into the work day she was able to get through the day, only getting sick one time before work. Client has improved boundary setting with focus on decreasing her people pleasing behavior. Client has started to reengage in activities she like to enjoy like socializing, going to yoga, and not napping immediately after work. Client responded well to treatment AEB engagement in group discussions, following through with homework, and opening up in individual sessions. Issues Still to be Addressed:: Client could benefit from reinforcement of healthy coping skills, continuing to work on maintaining boundaries, and being kind to herself. 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 Discharge Recommendations/Instructions:: Client has appointment with Chaya Carrillo for outpatient counseling on June 25. Will continue seeing outpatient provider for medication management. Client to start [facility] Aftercare program on 05/31/23 at 2pm. Discharge Handout
--- NOTE | 2023-05-25 10:03 | BH.SGPN.GN ---
Behaviors/Verbalizations/Mental Status: [] Client alert and oriented, neatly dressed and groomed. Eye contact good. Motor activity appropriate. Speech within normal limits. Affect full, mood euthymic. Thoughts linear, logical, no signs of hallucinations or delusions Client Response/Progress/Benefit: [] Client was an active participant in group discussion and experiential activity. Attentive during psychoeducation on resilience. Participated in interactive discussion with peers on the definition of resilience and where it comes from. Group identified that resiliency can be impacted by; past experiences, physical and mental health status, and supports. Client discussed how reflecting on progress has helped her grow her own resiliency. Able to relate experiential activity of group juggle to topics of resilience. Worked well with peers in small group in which they identified factors that contribute to resilience. Benefited from increased awareness of resilience and the factors that contribute to building resilience. Client is expected to be discharged from [facility] today with making significant progress. Narrative Note: []
--- NOTE | 2023-05-25 11:13 | BH.SGPN.GN ---
Behaviors/Verbalizations/Mental Status: [] Client alert and oriented, neatly dressed and groomed. Eye contact good. Motor activity appropriate. Speech within normal limits. Affect full, mood euthymic. Thoughts linear, logical, no signs of hallucinations or delusions Client Response/Progress/Benefit: [] Client responded well to session AEB completing the resilience worksheet provided. Client actively participated in the discussion and worked cooperatively with group to identify strategies to enhance each of the components discussed. Client reports belief they already use resilience trait of ?self awareness? especially since starting IOP program. Client discussed that they could work on having a positive view of self. Client discussed that she could achieve this by doing daily affirmations. Client seemed to benefit from discussing strategies for improving personal resilience and identifying resilience traits client already possesses. Client has made significant progress and is expected to be discharged from program today. Narrative Note: []
== END 2023-05-25 12:31 | disposition home or self-care (01) ==
LOC: BHIOP 07:16
PROVIDERS: PCP Family Medicine; Referring Provider Psychiatry & Neurology Psychiatry; Visit Provider Psychiatry & Neurology Psychiatry
DX: F33.2 Major depressive disorder, recurrent severe without psychotic features (principal); F41.0 Panic disorder [episodic paroxysmal anxiety]; F43.10 Post-traumatic stress disorder, unspecified; F41.1 Generalized anxiety disorder
CPT/HCPCS: S9480; 90837; 90853

== ENCOUNTER 2023-05-31 13:53 | Outpatient (RCR) | payer OTHER, SELFPAY ==
--- NOTE | 2023-05-31 14:00 | BH.COMM ---
Communication Note Communication with Client Communication Note: Patient completed IOP and presents today to start relapse prevention group which meets once weekly (1.5 hours) for 8 weeks. Case discussed with Dr. Ruano with plan to admit with dx of F33.2
--- NOTE | 2023-05-31 15:07 | BH.MTP_ITS ---
Master Treatment Plan Patient Information Program Physician:: Dr. Ruano Primary Therapist:: Marcia Carson [facility] Psychiatric Diagnoses Psychiatric Diagnoses:: 1. Major depressive disorder, recurrent, severe without psychosis 2. Panic disorder 3. PTSD 4. Generalized anxiety disorder Diagnosis Code(s):: F33.2 Estimated LOS Estimated LOS (in weeks):: 6 Problem/Goal #1 Problem/Goal #1 Stated Goal:: Client will maintain or see a reduction in symptoms AEB client score on the DSM 5 cross-cutting measure and improve client's daily functioning. Objectives Objective #1: Stated Objective: Client will continue to consistently apply healthy coping skills to maintain progress made in IOP tx. Interventions: Through group therapy, client will review warning signs and triggers as well as healthy coping skills learned in IOP tx to successfully maintain gains while transitioning into outpatient therapy. Discharge Criteria: Client will have accomplished this goal when client's score on the DSM-5 cross-cutting measure has either maintained or reduced over an 8 week period. Target Date: 07/26/23 Review Date: 06/28/23 Objective #2: Stated Objective: Client will learn and utilize 2-3 maintenance strategies to prevent decompensation from original IOP DSM-5 scores. Interventions: Through group therapy, client will be provided with education on healthy maintenance behaviors, relapse prevention techniques, and healthy coping strategies. Discharge Criteria: Client will have accomplished this goal when can report using at least 2 maintenance skills to prevent decompensation compared to original IOP DSM-5 scores Target Date: 07/26/23 Review Date: 06/28/23
--- NOTE | 2023-06-04 10:25 | BH.DS ---
Discharge Summary Demographics Date of Admission:: 04/02/23
--- NOTE | 2023-06-07 14:00 | BH.SGPN.GN ---
Behaviors/Verbalizations/Mental Status: []Client alert and oriented, casually dressed and groomed. Eye contact fair to good. Motor activity appropriate. Speech within normal limits. Affect congruent, mood euthymic and anxious. Thoughts linear, logical, no signs of hallucinations or delusions. Client Response/Progress/Benefit: []Receptive of session, engaged throughout. Pt reports she has remained consistent in attending outpatient counseling and psychiatry appointments, as well as maintaining medication compliance. Noted use of positive self-talk, opposite action, and having difficult conversations with supports as coping skills aiding in ongoing mental health maintenance. Engaged and attentive during discussion of vulnerability and benefits of practicing vulnerability. Shared being vulnerable has not been easy for her as she struggles with fear of disappointing herself or others. Group discussed ways we avoid feeling vulnerable and how this negatively affects mental health and relationships. Appeared to benefit from group support and discussion reflecting on the positive impact vulnerability can have on mental health. Identified plans to challenge herself to continue to advocate and make healthy choices for herself rather than to please others as a way in which she could practice being vulnerable in the next week. Pt will continue with aftercare tx to maintain gains and prevent decompensation. Narrative Note: []
--- NOTE | 2023-06-19 14:13 | BH.COMM_ITS ---
Communication Note Communication with Client Communication Note: This marketing copywriter was contacted via phone call by client and client's support person due to some concerning behavior from client today. Client's support person informed this marketing copywriter that client was sending emails that did not make complete sense and seemed incoherent at times. Client agreed to have support person come to her house to check in on her because client indicated she needed help. Client's support person shared that client was acting erratically, contradicting herself, and presenting very different then usual. Client shared she is struggling and questioning everything. Stated she had a rough weekend with family. Client reported she is unsure about any decisions she's making at work and not sure she wants to work there anymore. Client recognizes she shouldn't make rash decisions when in a emotional state. At times client would make tangential comments. Client would agree to one statement then immediately change her mind. This marketing copywriter inquired what changed because client just spoke with this marketing copywriter yesterday morning and she was anxious, but doing okay. Client shared she hasn't eaten or slept in the last 48 hours. Client stated she's been taking her sleeping medication, but it hasn't been working. Client unable to articulate what happened from yesterday until today to trigger this change in behavior/feeling. Client agreed it would be helpful to have her come home to be with her. This marketing copywriter also encouraged client be evaluated at the ER. Client reported she did not want to do that at this time. Client's arrived and stated he could stay with her the rest of the day/night. Client's (Elkin) reported he would take client to the ER if she continued to demonstrate erratic and incoherent behavior. Elkin stated he wanted to let her sleep and if she still isn't doing well then he will take her to the ER. This marketing copywriter encouraged Elkin that if she refused to go to the ER he is to all 911. Client and Elkin expressed understanding of plan. Client denied taking anything like medications or alcohol yesterday or today. Reported she could keep herself safe. She agreed her mental state is not her baseline. Reported she believes she just needs sleep. Elkin and client expressed understanding of plan. This marketing copywriter to contact client in the morning to check-in on her. Elkin provided his number in case client does not answer. Client does appear to have change in mental status, but this could be attributed to no sleep or food in 48 hours. Client reports ability to maintain safety, will be with her all day/night, and everyone expressed comfort/aggregable with plan. Client does not demonstrate imminent harm to self or others.
--- NOTE | 2023-06-28 21:21 | BH.DS ---
Discharge Summary Demographics Date of Admission:: 05/31/23 Discharge Date: 06/28/23 Presenting Problems at Admission:: Pt completed over 6 weeks of IOP treatment due to anxiety and depression impacting her work and home functioning. Pt discharged from [facility] IOP program on 05/24/23. Pt continues to report anxiety about being back to work full-time. Pt reports some depressed symptoms of wanting to lay in bed more after work, but has been using opposite action to manage symptoms. Discharge Diagnoses:: 1. Major depressive disorder recurrent, severe without psychosis F33.2 2. Panic disorder 3. PTSD 4. Generalized anxiety disorder Reason for Discharge:: Client has chosen to discharge from [facility] Aftercare program early. Client stated she is established with outpatient counseling with Chaya Carrillo and outpatient psychiatry with Dr. Maldonado. Treatment Progress During Treatment & Response: Progress noted in the first couple weeks of aftercare sessions. Pt started to struggle in the last two weeks with not being able to sleep which significantly impacted mental health. Pt did establish with outpatient psychiatrist to help with finding medications that help with her sleep. Pt responded well to sessions AEB being an active participant, providing feedback/contributions, and listening to others. Issues Still to be Addressed:: Pt could benefit from continued work on emotion regulation, improving sleep, negative core belief work, challenging distortions, and trauma therapy. Discharge Recommendations/Instructions:: Pt is to see Dr. Maldonado today for psychiatry. Pt is established with Chaya Carrillo for outpatient counseling. Discharge Handout
== END 2023-06-28 23:59 ==
LOC: BHOG 13:53
PROVIDERS: PCP Family Medicine; Referring Provider Psychiatry & Neurology Psychiatry; Visit Provider Psychiatry & Neurology Psychiatry
DX: F33.2 Major depressive disorder, recurrent severe without psychotic features (principal); F43.10 Post-traumatic stress disorder, unspecified; F41.1 Generalized anxiety disorder; F41.0 Panic disorder [episodic paroxysmal anxiety]
CPT/HCPCS: 90853

== ENCOUNTER 2023-06-29 08:07 | Outpatient (RCR) | payer OTHER, SELFPAY | END 2023-07-05 10:26 | disposition home or self-care (01) | LOC: BHOG 08:07 | PROVIDERS: PCP Family Medicine; Referring Provider Psychiatry & Neurology Psychiatry; Visit Provider Psychiatry & Neurology Psychiatry | DX: F33.2 Major depressive disorder, recurrent severe without psychotic features (principal) ==